=== PATIENT | male | born 1960 | race Caucasian/White ===

== ENCOUNTER 2016-02-05 16:35 | Inpatient (IN) | payer BC ==
[~2016-02-05] VITALS: Ht 200.7 cm; Wt 133.1 kg
[~2016-02-05 16:35] MED LIST: ALTACE 10MG TAB10 MG PO; ALTACE 5MG5 MG PO; APRESOLINE 25MG25 MG PO; BLOOD PRESSURE PILL; CIPRO 500MG TA500 MG PO; GLUCOPHAGE XR500 M1 PO; GLUCOPHAGE1000 MG PO; LANTUS SOLOS100 U/ML SC; LOTREL 10 MG-401 CAP PO; MINOCYCLIN100 MG/CAP PO; NORVASC 10MG10 MG PO; ONGLYZA5 MG PO; PRANDIN 0.5MG0.5 MG PO; VANCOMYCIN IV; ZOCOR 20MG20 MG PO; blood pressure med; diabetic med
[2016-02-05 17:35] LABS: BASO # 0.1 (0.0-0.2); BASO % 0.5 % (0.0-2.0); EOS # 0.1 (0.0-0.7); EOS % 0.7 % (0-4.0); GRAN # 12.9 (1.4-6.5); GRAN % 84.9 % (42.2-75.2); LYMPH % 6.5 % (20.0-51.0); MEAN CELL VOLUME 78 fl (80.0-100.0); MEAN CORPUSCULAR HGB CONC 34 g/dl (33.0-37.0); MEAN PLATELET VOLUME 10.8 fl (7.4-10.4); MONO # 1.1 (0.1-0.6); PLATELET COUNT 278 K/mm3 (130-400); RED BLOOD COUNT 3.99 M/mm3 (4.20-5.60); REDCELL DISTRIBUTION WIDTH-CV 12.1 % (11.5-14.5); WHITE BLOOD COUNT 15.2 K/mm3 (4.8-10.8)
[2016-02-05 17:38] LABS: HEMATOCRIT 31.1 % (42.0-52.0); HEMOGLOBIN 10.6 g/dl (13.5-18.0); MEAN CORPUSCULAR HEMOGLOBIN 27 pg (27.0-31.0)
[2016-02-05 17:46] LABS: ADJUSTED CALCIUM 9.3 mg/dL (8.4-10.2); ALANINE AMINOTRANSFERASE 40 U/L (21-72); ALBUMIN 3.4 gm/dL (3.5-5.0); ALKALINE PHOSPHATASE 131 U/L (50-136); ANION GAP 12 mmol/L (7-16); BILIRUBIN,TOTAL 1.3 mg/dL (0.0-1.0); BLOOD UREA NITROGEN 24 mg/dL (9-20); CALCIUM 8.8 mg/dL (8.4-10.2); CARBON DIOXIDE 24 mmol/L (22-30); CHLORIDE 93 mmol/L (98-107); CREATININE, serum 1.62 mg/dL (0.66-1.25); POTASSIUM 4.4 mmol/L (3.4-5.0); SODIUM 129 mmol/L (137-145); TOTAL PROTEIN 7.5 gm/dL (6.4-8.2)
[2016-02-05 17:52] LABS: GLUCOSE 499 mg/dL (74-106)
[2016-02-05 18:26] LABS: C-REACTIVE PROTEIN 21.6 mg/dL (0.0-0.9)
[2016-02-05 20:59] VITALS: BP 152/80; PULSE 97; TEMP 98.4
[2016-02-05 23:47] VITALS: BP 170/84; PULSE 95; TEMP 98.2
[2016-02-06 03:40] VITALS: BP 152/67; PULSE 75; TEMP 98.7
[2016-02-06 06:46] LABS: BASO # 0.1 (0.0-0.2); BASO % 0.4 % (0.0-2.0); EOS # 0.3 (0.0-0.7); EOS % 2.4 % (0-4.0); GRAN # 9.3 (1.4-6.5); GRAN % 81.1 % (42.2-75.2); LYMPH # 0.9 (1.2-3.4); LYMPH % 7.7 % (20.0-51.0); MEAN CELL VOLUME 79 fl (80.0-100.0); MEAN CORPUSCULAR HGB CONC 34 g/dl (33.0-37.0); MEAN PLATELET VOLUME 10.5 fl (7.4-10.4); MONO # 0.9 (0.1-0.6); PLATELET COUNT 258 K/mm3 (130-400); RED BLOOD COUNT 3.34 M/mm3 (4.20-5.60); REDCELL DISTRIBUTION WIDTH-CV 12.2 % (11.5-14.5); WHITE BLOOD COUNT 11.5 K/mm3 (4.8-10.8)
[2016-02-06 06:51] LABS: CALCIUM 8.3 mg/dL (8.4-10.2); CREATININE, serum 1.45 mg/dL (0.66-1.25); POTASSIUM 3.5 mmol/L (3.4-5.0)
[2016-02-06 06:57] LABS: HEMATOCRIT 26.5 % (42.0-52.0); HEMOGLOBIN 8.9 g/dl (13.5-18.0); MEAN CORPUSCULAR HEMOGLOBIN 27 pg (27.0-31.0)
[2016-02-06 07:49] VITALS: BP 148/79; PULSE 90; TEMP 99
[2016-02-06 13:21] VITALS: BP 155/72; PULSE 86; TEMP 97.9
[2016-02-06 17:42] VITALS: BP 163/82; PULSE 103; TEMP 99.8
[2016-02-06 19:23] VITALS: BP 169/87; PULSE 115; TEMP 99
[2016-02-06 23:40] VITALS: BP 176/77; PULSE 100; TEMP 99.2
[2016-02-07 03:46] VITALS: BP 156/75; PULSE 86; TEMP 97.1
[2016-02-07 06:57] LABS: BASO # 0.1 (0.0-0.2); BASO % 0.6 % (0.0-2.0); EOS # 0.3 (0.0-0.7); GRAN # 7.2 (1.4-6.5); LYMPH # 1.2 (1.2-3.4); LYMPH % 12.2 % (20.0-51.0); MEAN CELL VOLUME 80 fl (80.0-100.0); MEAN CORPUSCULAR HGB CONC 33 g/dl (33.0-37.0); MEAN PLATELET VOLUME 10.6 fl (7.4-10.4); MONO % 9.7 % (1.7-9.3); PLATELET COUNT 261 K/mm3 (130-400); RED BLOOD COUNT 3.38 M/mm3 (4.20-5.60); REDCELL DISTRIBUTION WIDTH-CV 12.5 % (11.5-14.5); WHITE BLOOD COUNT 9.8 K/mm3 (4.8-10.8)
[2016-02-07 07:01] LABS: HEMATOCRIT 27.1 % (42.0-52.0); HEMOGLOBIN 8.9 g/dl (13.5-18.0); MEAN CORPUSCULAR HEMOGLOBIN 26 pg (27.0-31.0)
[2016-02-07 07:19] LABS: CALCIUM 8.2 mg/dL (8.4-10.2); CREATININE, serum 1.37 mg/dL (0.66-1.25); MAGNESIUM 1.9 mg/dL (1.6-2.3); POTASSIUM 3.7 mmol/L (3.4-5.0)
[2016-02-07 07:50] LABS: C-REACTIVE PROTEIN 18.2 mg/dL (0.0-0.9)
[2016-02-07 08:28] VITALS: BP 165/79; PULSE 88; TEMP 98.7
[2016-02-07 11:33] VITALS: BP 156/78; PULSE 87; TEMP 98.3
[2016-02-07 16:32] VITALS: BP 171/79; PULSE 90; TEMP 100.5
[2016-02-07 19:24] VITALS: BP 167/79; PULSE 99; TEMP 98.7
[2016-02-08] VITALS (11 sets, daily range): BP systolic 114–173; BP diastolic 66–90; PULSE 71–160; TEMP 97.1–100.3
[2016-02-08 08:58] LABS: BASO # 0.1 (0.0-0.2); BASO % 0.8 % (0.0-2.0); EOS # 0.3 (0.0-0.7); EOS % 3.7 % (0-4.0); GRAN # 6.3 (1.4-6.5); GRAN % 69.8 % (42.2-75.2); LYMPH # 1.4 (1.2-3.4); LYMPH % 15.4 % (20.0-51.0); MEAN CELL VOLUME 80 fl (80.0-100.0); MEAN CORPUSCULAR HGB CONC 34 g/dl (33.0-37.0); MEAN PLATELET VOLUME 10.1 fl (7.4-10.4); MONO # 0.9 (0.1-0.6); MONO % 9.7 % (1.7-9.3); PLATELET COUNT 296 K/mm3 (130-400); RED BLOOD COUNT 3.38 M/mm3 (4.20-5.60); REDCELL DISTRIBUTION WIDTH-CV 12.6 % (11.5-14.5)
[2016-02-08 09:00] LABS: HEMOGLOBIN 9.1 g/dl (13.5-18.0); MEAN CORPUSCULAR HEMOGLOBIN 27 pg (27.0-31.0)
[2016-02-08 09:12] LABS: CALCIUM 8.4 mg/dL (8.4-10.2); CREATININE, serum 1.29 mg/dL (0.66-1.25); POTASSIUM 3.5 mmol/L (3.4-5.0)
[2016-02-08 09:57] LABS: C-REACTIVE PROTEIN 13.5 mg/dL (0.0-0.9)
[2016-02-09] VITALS (8 sets, daily range): BP systolic 158–196; BP diastolic 76–91; PULSE 80–88; TEMP 97.2–98.8
[2016-02-09 13:34] LABS: BASO # 0.1 (0.0-0.2); BASO % 0.6 % (0.0-2.0); EOS # 0.3 (0.0-0.7); GRAN # 5.8 (1.4-6.5); GRAN % 72.7 % (42.2-75.2); LYMPH # 1.1 (1.2-3.4); LYMPH % 13.6 % (20.0-51.0); MEAN CELL VOLUME 79 fl (80.0-100.0); MEAN CORPUSCULAR HGB CONC 34 g/dl (33.0-37.0); MEAN PLATELET VOLUME 10.1 fl (7.4-10.4); MONO # 0.6 (0.1-0.6); MONO % 8.1 % (1.7-9.3); PLATELET COUNT 295 K/mm3 (130-400); RED BLOOD COUNT 3.47 M/mm3 (4.20-5.60); REDCELL DISTRIBUTION WIDTH-CV 12.5 % (11.5-14.5); WHITE BLOOD COUNT 7.9 K/mm3 (4.8-10.8)
[2016-02-09 13:35] LABS: HEMATOCRIT 27.5 % (42.0-52.0); HEMOGLOBIN 9.2 g/dl (13.5-18.0); MEAN CORPUSCULAR HEMOGLOBIN 27 pg (27.0-31.0)
[2016-02-09 13:46] LABS: C-REACTIVE PROTEIN 7.6 mg/dL (0.0-0.9); CALCIUM 8.4 mg/dL (8.4-10.2); CREATININE, serum 1.2 mg/dL (0.66-1.25); POTASSIUM 3.9 mmol/L (3.4-5.0)
[2016-02-10 03:10] VITALS: BP 177/87; PULSE 80; TEMP 97
[2016-02-10 07:02] LABS: C-REACTIVE PROTEIN 7.4 mg/dL (0.0-0.9); CREATININE, serum 1.27 mg/dL (0.66-1.25); POTASSIUM 3.8 mmol/L (3.4-5.0)
[2016-02-10 08:23] VITALS: BP 167/81; PULSE 83; TEMP 98
[2016-02-10] MEDS ORDERED: LEVAQUIN 5500 MG/TA1 PO (09:18)
[2016-02-10] MEDS ORDERED: NOVOLOG FLEX100 U/ML SQ (09:18)
[2016-02-10] MEDS ORDERED: LOPRESSOR 225 MG/TAB PO (09:18)
[2016-02-10] MEDS ORDERED: LOPRESSOR 550 MG/TAB PO (11:57)
[2016-02-10 12:10] VITALS: BP 167/78; PULSE 79; TEMP 97.6
[2016-04-22] MEDS ORDERED: MAXIPIME2 GM IV (07:25)
[2016-10-22] MEDS ORDERED: FERROUS SU325 MG/TAB PO (11:41)
[2016-10-22] MEDS ORDERED: XARELTO10 MG PO (11:41)
[2016-10-22] MEDS ORDERED: TENORMIN 5050 MG/TAB PO (11:42)
[2016-10-22] MEDS ORDERED: COLACE 100100 MG/CAP PO (11:43)
[2016-10-22] MEDS ORDERED: TYLENOL 325MG325 MG PO (11:43)
[2016-10-22] MEDS ORDERED: COZAAR 50MG50 MG/TAB PO (11:44)
== END 2016-02-10 14:18 | disposition home or self-care (01) | DRG 638 ==
LOC: COL.ER 16:35 → MEDICAL 18:10
PROVIDERS: Emergency Medicine; Family Medicine; Nurse Practitioner Family
DX: E11.69 Type 2 diabetes mellitus with other specified complication (principal); M86.9 Osteomyelitis, unspecified; E87.1 Hypo-osmolality and hyponatremia; R78.81 Bacteremia; E11.621 Type 2 diabetes mellitus with foot ulcer; E11.22 Type 2 diabetes mellitus with diabetic chronic kidney disease; E11.65 Type 2 diabetes mellitus with hyperglycemia; E11.42 Type 2 diabetes mellitus with diabetic polyneuropathy; I12.9 Hypertensive chronic kidney disease with stage 1 through stage 4 chronic kidney disease, or unspecified chronic kidney disease; N18.9 Chronic kidney disease, unspecified; N17.9 Acute kidney failure, unspecified; D64.9 Anemia, unspecified; R00.0 Tachycardia, unspecified; B95.5 Unspecified streptococcus as the cause of diseases classified elsewhere; Z86.73 Personal history of transient ischemic attack (TIA), and cerebral infarction without residual deficits; Z79.4 Long term (current) use of insulin
CPT/HCPCS: 99222-AI; 99232-AI; 99233-AI; 99239; A6207; A9585; J0696; J1644; J1815; J1956; J2543; J3370; J7030; J7050

== ENCOUNTER 2016-04-09 17:34 | Inpatient (IN) | payer BC ==
[~2016-04-09] VITALS: Ht 200.7 cm; Wt 121.5 kg
[~2016-04-09 17:34] MED LIST changes: +LEVAQUIN 5500 MG/TA1 PO; +LOPRESSOR 225 MG/TAB PO; +LOPRESSOR 550 MG/TAB PO; +NOVOLOG FLEX100 U/ML SQ
[2016-04-09 18:49] LABS: BASO % 0.3 % (0.0-2.0); EOS % 0.1 % (0-4.0); GRAN % 87.8 % (42.2-75.2); LYMPH # 0.7 (1.2-3.4); LYMPH % 5.7 % (20.0-51.0); MEAN CELL VOLUME 77 fl (80.0-100.0); MEAN CORPUSCULAR HGB CONC 34 g/dl (33.0-37.0); MEAN PLATELET VOLUME 10.5 fl (7.4-10.4); MONO # 0.7 (0.1-0.6); MONO % 5.8 % (1.7-9.3); PLATELET COUNT 314 K/mm3 (130-400); RED BLOOD COUNT 4.48 M/mm3 (4.20-5.60); REDCELL DISTRIBUTION WIDTH-CV 13.2 % (11.5-14.5); WHITE BLOOD COUNT 12.6 K/mm3 (4.8-10.8)
[2016-04-09 18:56] LABS: HEMATOCRIT 34.4 % (42.0-52.0); HEMOGLOBIN 11.6 g/dl (13.5-18.0); MEAN CORPUSCULAR HEMOGLOBIN 26 pg (27.0-31.0)
[2016-04-09 19:12] LABS: ADJUSTED CALCIUM 9.4 mg/dL (8.4-10.2); ALBUMIN 4.1 gm/dL (3.5-5.0); BILIRUBIN,TOTAL 2.4 mg/dL (0.0-1.0); CALCIUM 9.5 mg/dL (8.4-10.2); CREATININE, serum 1.68 mg/dL (0.66-1.25); POTASSIUM 4.1 mmol/L (3.4-5.0); TOTAL PROTEIN 8.5 gm/dL (6.4-8.2)
[2016-04-09 19:13] LABS: ERYTHROCYTE SEDIMENTATION RATE > 140 mm/hr (0-30)
[2016-04-09 19:38] LABS: C-REACTIVE PROTEIN 23.5 mg/dL (0.0-0.9)
[2016-04-09 21:06] VITALS: BP 170/90; PULSE 100; TEMP 98.8
[2016-04-09] MEDS ORDERED: ALTACE 10MG TAB10 MG PO (21:27)
[2016-04-10 05:12] VITALS: BP 144/66; PULSE 90; TEMP 98.7
[2016-04-10 09:09] VITALS: BP 168/77; PULSE 88; TEMP 97.7
[2016-04-10 12:35] LABS: BASO % 0.4 % (0.0-2.0); EOS # 0.1 (0.0-0.7); GRAN % 77.1 % (42.2-75.2); LYMPH # 1.1 (1.2-3.4); LYMPH % 12.5 % (20.0-51.0); MEAN CELL VOLUME 77 fl (80.0-100.0); MEAN CORPUSCULAR HGB CONC 34 g/dl (33.0-37.0); MONO # 0.8 (0.1-0.6); MONO % 8.8 % (1.7-9.3); PLATELET COUNT 249 K/mm3 (130-400); RED BLOOD COUNT 3.42 M/mm3 (4.20-5.60); REDCELL DISTRIBUTION WIDTH-CV 13.1 % (11.5-14.5); WHITE BLOOD COUNT 9.1 K/mm3 (4.8-10.8)
[2016-04-10 12:40] LABS: CALCIUM 8.3 mg/dL (8.4-10.2); CREATININE, serum 1.17 mg/dL (0.66-1.25); POTASSIUM 3.9 mmol/L (3.4-5.0)
[2016-04-10 12:41] LABS: HEMATOCRIT 26.3 % (42.0-52.0); HEMOGLOBIN 8.8 g/dl (13.5-18.0); MEAN CORPUSCULAR HEMOGLOBIN 26 pg (27.0-31.0)
[2016-04-10 13:49] VITALS: BP 147/81; PULSE 81; TEMP 97.4
[2016-04-10 17:02] VITALS: BP 153/77; PULSE 83; TEMP 98.1
[2016-04-10 21:56] VITALS: BP 169/80; PULSE 91; TEMP 98.1
[2016-04-11] VITALS (7 sets, daily range): BP systolic 148–159; BP diastolic 57–82; PULSE 76–92; TEMP 97.5–98.5
[2016-04-11 09:55] LABS: BASO # 0.1 (0.0-0.2); BASO % 0.6 % (0.0-2.0); EOS # 0.2 (0.0-0.7); EOS % 2.4 % (0-4.0); GRAN # 5.4 (1.4-6.5); GRAN % 68.4 % (42.2-75.2); LYMPH # 1.6 (1.2-3.4); LYMPH % 20.6 % (20.0-51.0); MEAN CELL VOLUME 79 fl (80.0-100.0); MEAN CORPUSCULAR HGB CONC 33 g/dl (33.0-37.0); MEAN PLATELET VOLUME 10.4 fl (7.4-10.4); MONO # 0.6 (0.1-0.6); MONO % 7.6 % (1.7-9.3); PLATELET COUNT 338 K/mm3 (130-400); RED BLOOD COUNT 3.62 M/mm3 (4.20-5.60); REDCELL DISTRIBUTION WIDTH-CV 13.3 % (11.5-14.5); WHITE BLOOD COUNT 7.9 K/mm3 (4.8-10.8)
[2016-04-11 10:08] LABS: ADJUSTED CALCIUM 9.6 mg/dL (8.4-10.2); ALBUMIN 3.2 gm/dL (3.5-5.0); CREATININE, serum 1.27 mg/dL (0.66-1.25); POTASSIUM 3.4 mmol/L (3.4-5.0); TOTAL PROTEIN 7.1 gm/dL (6.4-8.2)
[2016-04-11 10:14] LABS: HEMATOCRIT 28.5 % (42.0-52.0); HEMOGLOBIN 9.3 g/dl (13.5-18.0); MEAN CORPUSCULAR HEMOGLOBIN 26 pg (27.0-31.0)
[2016-04-12] VITALS (12 sets, daily range): BP systolic 124–153; BP diastolic 64–98; PULSE 62–84; TEMP 98.1–99.3
[2016-04-12 08:56] LABS: MEAN CELL VOLUME 78 fl (80.0-100.0); MEAN CORPUSCULAR HGB CONC 33 g/dl (33.0-37.0); MEAN PLATELET VOLUME 10.4 fl (7.4-10.4); PLATELET COUNT 300 K/mm3 (130-400); RED BLOOD COUNT 3.52 M/mm3 (4.20-5.60); REDCELL DISTRIBUTION WIDTH-CV 13.3 % (11.5-14.5); WHITE BLOOD COUNT 7.1 K/mm3 (4.8-10.8)
[2016-04-12 09:17] LABS: HEMATOCRIT 27.6 % (42.0-52.0); MEAN CORPUSCULAR HEMOGLOBIN 26 pg (27.0-31.0)
[2016-04-12 09:37] LABS: CALCIUM 8.8 mg/dL (8.4-10.2); CREATININE, serum 1.17 mg/dL (0.66-1.25); POTASSIUM 3.7 mmol/L (3.4-5.0)
[2016-04-13 02:19] VITALS: BP 152/73; PULSE 84; TEMP 99.5
[2016-04-13 06:18] VITALS: BP 152/71; PULSE 83; TEMP 98.5
[2016-04-13 07:23] LABS: HEMATOCRIT 24.2 % (42.0-52.0)
[2016-04-13 07:41] LABS: CALCIUM 8.6 mg/dL (8.4-10.2); CREATININE, serum 1.23 mg/dL (0.66-1.25); POTASSIUM 3.8 mmol/L (3.4-5.0)
[2016-04-13] MEDS ORDERED: XARELTO10 MG PO (08:10)
[2016-04-13] MEDS ORDERED: CARDIZEM CD 12120 MG PO (08:11)
[2016-04-13] MEDS ORDERED: TOPROL XL 50MG50 MG PO (08:11)
[2016-04-13] MEDS ORDERED: NORCO 325 MG-7.1 TAB PO (08:12)
[2016-04-13] MEDS ORDERED: LANTUS SOLOS100 U/ML SQ (08:15)
[2016-04-13] MEDS ORDERED: VANCOCIN HCL1 GM IV (08:17)
[2016-04-13] MEDS ORDERED: MAXIPIME2 GM IJ (08:17)
[2016-04-13 13:26] VITALS: BP 148/74; PULSE 83; TEMP 99.3
[2016-04-22] MEDS ORDERED: MAXIPIME2 GM IV (07:25)
[2016-10-22] MEDS ORDERED: XARELTO10 MG PO (11:41)
[2016-10-22] MEDS ORDERED: FERROUS SU325 MG/TAB PO (11:41)
[2016-10-22] MEDS ORDERED: TENORMIN 5050 MG/TAB PO (11:42)
[2016-10-22] MEDS ORDERED: COLACE 100100 MG/CAP PO (11:43)
[2016-10-22] MEDS ORDERED: TYLENOL 325MG325 MG PO (11:43)
[2016-10-22] MEDS ORDERED: COZAAR 50MG50 MG/TAB PO (11:44)
== END 2016-04-13 20:05 | disposition home or self-care (01) | DRG 854 ==
LOC: COL.ER 17:34 → SURG 19:31
PROVIDERS: Emergency Medicine; Internal Medicine; Orthopaedic Surgery
PROC: 0QBN0ZZ Excision of Right Metatarsal, Open Approach (ICD-10-PCS; 2016-04-12)
PROC: 0Y6M0Z9 Detachment at Right Foot, Partial 1st Ray, Open Approach (ICD-10-PCS; principal; 2016-04-12 11:00)
PROC: 02HV33Z Insertion of Infusion Device into Superior Vena Cava, Percutaneous Approach (ICD-10-PCS; 2016-04-13)
DX: A41.9 Sepsis, unspecified organism (principal); M86.171 Other acute osteomyelitis, right ankle and foot; D62 Acute posthemorrhagic anemia; M86.671 Other chronic osteomyelitis, right ankle and foot; I47.1 Supraventricular tachycardia; Z66 Do not resuscitate; E11.69 Type 2 diabetes mellitus with other specified complication; I10 Essential (primary) hypertension; E11.42 Type 2 diabetes mellitus with diabetic polyneuropathy; Z79.4 Long term (current) use of insulin; Z86.73 Personal history of transient ischemic attack (TIA), and cerebral infarction without residual deficits
CPT/HCPCS: 99223-AI; 99232-AI; 99233-AI; 99239; C1713; C1751; J0690; J0692; J1644; J1815; J2250; J2543; J2704; J2765; J3010; J3260; J3370; J7030; J7050

== ENCOUNTER 2016-04-27 07:00 | Outpatient (RCR) | payer BC ==
[2016-04-14 07:17] VITALS: BP 142/63; PULSE 92; TEMP 97.9
[2016-04-14 18:49] VITALS: BP 155/90; PULSE 90; TEMP 97.7
[2016-04-15] VITALS (12 sets, daily range): BP systolic 148–180; BP diastolic 69–98; PULSE 81–94; TEMP 97–98.8
[2016-04-15 07:44] LABS: MEAN CELL VOLUME 78 fl (80.0-100.0); MEAN CORPUSCULAR HGB CONC 33 g/dl (33.0-37.0); PLATELET COUNT 359 K/mm3 (130-400); RED BLOOD COUNT 2.02 M/mm3 (4.20-5.60); REDCELL DISTRIBUTION WIDTH-CV 13.2 % (11.5-14.5); WHITE BLOOD COUNT 7.9 K/mm3 (4.8-10.8)
[2016-04-15 07:46] LABS: HEMATOCRIT 15.8 % (42.0-52.0); HEMOGLOBIN 5.2 g/dl (13.5-18.0); MEAN CORPUSCULAR HEMOGLOBIN 26 pg (27.0-31.0)
[2016-04-15 08:00] LABS: ADJUSTED CALCIUM 9.6 mg/dL (8.4-10.2); ALBUMIN 2.7 gm/dL (3.5-5.0); BILIRUBIN,TOTAL 0.8 mg/dL (0.0-1.0); CALCIUM 8.6 mg/dL (8.4-10.2); CREATININE, serum 1.24 mg/dL (0.66-1.25); POTASSIUM 3.3 mmol/L (3.4-5.0); TOTAL PROTEIN 5.9 gm/dL (6.4-8.2)
[2016-04-15 08:03] LABS: VANCOMYCIN TROUGH 16.07 ug/mL (7.00-20.00)
[2016-04-15 08:08] LABS: ERYTHROCYTE SEDIMENTATION RATE > 140 mm/hr (0-30)
[2016-04-15 08:13] LABS: C-REACTIVE PROTEIN 14.7 mg/dL (0.0-0.9)
[2016-04-16 07:28] VITALS: BP 175/87; PULSE 82; TEMP 97.8
[2016-04-16 07:41] LABS: HEMATOCRIT 30.3 % (42.0-52.0)
[2016-04-16 18:00] VITALS: BP 188/93; PULSE 78; TEMP 97.6
[2016-04-17 07:18] VITALS: BP 170/80; PULSE 82; TEMP 97.7
[2016-04-17 18:37] VITALS: BP 162/74; PULSE 90; TEMP 98.3
[2016-04-18 08:35] VITALS: BP 155/79; PULSE 82; TEMP 98.4
[2016-04-19 07:28] VITALS: BP 173/86; PULSE 81; TEMP 97.3
[2016-04-19 08:01] VITALS: BP 173/86; PULSE 81; TEMP 97.3
[2016-04-20 07:08] VITALS: BP 198/85; PULSE 83; TEMP 97.5
[2016-04-20 08:10] LABS: CREATININE, serum 2.69 mg/dL (0.66-1.25)
[2016-04-20 17:15] VITALS: BP 200/88; PULSE 85; TEMP 98
[2016-04-20 19:33] VITALS: BP 181/88
[2016-04-21 07:35] VITALS: BP 197/93; PULSE 81; TEMP 98.1
[2016-04-21 07:48] LABS: CALCIUM 8.9 mg/dL (8.4-10.2); CREATININE, serum 2.56 mg/dL (0.66-1.25); POTASSIUM 3.6 mmol/L (3.4-5.0)
[2016-04-22 07:26] VITALS: BP 192/90; PULSE 80; TEMP 97.8
[2016-04-22 07:38] LABS: CREATININE, serum 2.85 mg/dL (0.66-1.25)
[2016-04-22 10:05] VITALS: BP 211/111; PULSE 72
[2016-04-22 11:10] VITALS: BP 180/97; PULSE 72
[2016-04-23 07:15] VITALS: BP 180/92; PULSE 81; TEMP 97.8
[2016-04-23 08:35] LABS: CREATININE, serum 2.59 mg/dL (0.66-1.25)
[2016-04-24 07:38] VITALS: BP 199/90; PULSE 77; TEMP 98
[2016-04-24 07:55] LABS: CREATININE, serum 2.42 mg/dL (0.66-1.25)
[2016-04-25 08:14] LABS: BASO # 0.1 (0.0-0.2); BASO % 0.9 % (0.0-2.0); EOS # 0.4 (0.0-0.7); EOS % 5.6 % (0-4.0); GRAN # 4.4 (1.4-6.5); GRAN % 64.4 % (42.2-75.2); HEMATOCRIT 28.6 % (42.0-52.0); HEMOGLOBIN 9.3 g/dl (13.5-18.0); LYMPH # 1.5 (1.2-3.4); LYMPH % 21.4 % (20.0-51.0); MEAN CELL VOLUME 79 fl (80.0-100.0); MEAN CORPUSCULAR HEMOGLOBIN 26 pg (27.0-31.0); MEAN CORPUSCULAR HGB CONC 33 g/dl (33.0-37.0); MEAN PLATELET VOLUME 9.5 fl (7.4-10.4); MONO # 0.5 (0.1-0.6); MONO % 7.4 % (1.7-9.3); PLATELET COUNT 315 K/mm3 (130-400); RED BLOOD COUNT 3.61 M/mm3 (4.20-5.60); REDCELL DISTRIBUTION WIDTH-CV 14.2 % (11.5-14.5); WHITE BLOOD COUNT 6.8 K/mm3 (4.8-10.8)
[2016-04-25 08:28] LABS: ADJUSTED CALCIUM 9.5 mg/dL (8.4-10.2); ALBUMIN 3.3 gm/dL (3.5-5.0); BILIRUBIN,TOTAL 0.5 mg/dL (0.0-1.0); C-REACTIVE PROTEIN 1.2 mg/dL (0.0-0.9); CALCIUM 8.9 mg/dL (8.4-10.2); CREATININE, serum 2.64 mg/dL (0.66-1.25); POTASSIUM 3.8 mmol/L (3.4-5.0); TOTAL PROTEIN 7.2 gm/dL (6.4-8.2)
[2016-04-25 08:32] LABS: ERYTHROCYTE SEDIMENTATION RATE 98 mm/hr (0-30)
[2016-04-25 09:18] VITALS: BP 189/92; PULSE 78; TEMP 97.7
[2016-04-26 09:26] VITALS: BP 191/93; PULSE 88; TEMP 98.4
[~2016-04-27] VITALS: Ht 200.7 cm; Wt 127.2 kg
[~2016-04-27 07:00] MED LIST changes: +CARDIZEM CD 12120 MG PO; +LANTUS SOLOS100 U/ML SQ; +MAXIPIME2 GM IJ; +MAXIPIME2 GM IV; +NORCO 325 MG-7.1 TAB PO; +TOPROL XL 50MG50 MG PO; +VANCOCIN HCL1 GM IV; +XARELTO10 MG PO
[2016-04-27 07:01] VITALS: BP 190/95; PULSE 84; TEMP 98
[2016-04-27] MEDS ORDERED: VANCOCIN HCL1 GM IV (20:48)
[2016-04-29] MEDS ORDERED: LANTUS100 U/ML SQ ×2 (10:49→14:44)
[2016-04-29] MEDS ORDERED: TOPROL XL 50MG50 MG PO (10:50)
[2016-04-29] MEDS ORDERED: CARDIZEM CD 12120 MG PO (10:50)
[2016-04-29] MEDS ORDERED: DOXYCYCLINE 10100 MG PO (14:34)
[2016-04-29] MEDS ORDERED: PROCARDIA XL 6060 MG PO (14:35)
[2016-10-22] MEDS ORDERED: FERROUS SU325 MG/TAB PO (11:41)
[2016-10-22] MEDS ORDERED: XARELTO10 MG PO (11:41)
[2016-10-22] MEDS ORDERED: TENORMIN 5050 MG/TAB PO (11:42)
[2016-10-22] MEDS ORDERED: COLACE 100100 MG/CAP PO (11:43)
[2016-10-22] MEDS ORDERED: TYLENOL 325MG325 MG PO (11:43)
[2016-10-22] MEDS ORDERED: COZAAR 50MG50 MG/TAB PO (11:44)
== END 2016-04-28 13:00 | disposition home or self-care (01) ==
LOC: EUO 07:00
PROVIDERS: Family Medicine; Internal Medicine Infectious Disease; Nurse Practitioner; Specialist
DX: L02.611 Cutaneous abscess of right foot (principal); Z79.2 Long term (current) use of antibiotics; Z45.2 Encounter for adjustment and management of vascular access device
CPT/HCPCS: J0692; J1644; J3370; J7030; J7050; P9016

== ENCOUNTER 2016-04-27 20:40 | Inpatient (IN) | payer BC ==
[~2016-04-27] VITALS: Ht 200.7 cm; Wt 128.5 kg
[2016-04-27] MEDS ORDERED: VANCOCIN HCL1 GM IV (20:48)
[2016-04-27 21:32] LABS: BASO # 0.1 (0.0-0.2); BASO % 0.6 % (0.0-2.0); EOS # 0.1 (0.0-0.7); EOS % 0.7 % (0-4.0); GRAN # 11.5 (1.4-6.5); GRAN % 88.1 % (42.2-75.2); LYMPH # 0.7 (1.2-3.4); LYMPH % 5.1 % (20.0-51.0); MEAN CELL VOLUME 78 fl (80.0-100.0); MEAN CORPUSCULAR HGB CONC 33 g/dl (33.0-37.0); MEAN PLATELET VOLUME 9.5 fl (7.4-10.4); MONO # 0.7 (0.1-0.6); MONO % 5.1 % (1.7-9.3); PLATELET COUNT 278 K/mm3 (130-400); RED BLOOD COUNT 3.62 M/mm3 (4.20-5.60); REDCELL DISTRIBUTION WIDTH-CV 14.4 % (11.5-14.5)
[2016-04-27 21:35] LABS: HEMATOCRIT 28.3 % (42.0-52.0); HEMOGLOBIN 9.4 g/dl (13.5-18.0); MEAN CORPUSCULAR HEMOGLOBIN 26 pg (27.0-31.0)
[2016-04-27 21:47] LABS: ADJUSTED CALCIUM 9.2 mg/dL (8.4-10.2); ALBUMIN 3.3 gm/dL (3.5-5.0); BILIRUBIN,TOTAL 0.8 mg/dL (0.0-1.0); C-REACTIVE PROTEIN 6.4 mg/dL (0.0-0.9); CALCIUM 8.6 mg/dL (8.4-10.2); CREATININE, serum 2.58 mg/dL (0.66-1.25); POTASSIUM 3.7 mmol/L (3.4-5.0); TOTAL PROTEIN 7.3 gm/dL (6.4-8.2)
[2016-04-27 21:53] LABS: ERYTHROCYTE SEDIMENTATION RATE > 140 mm/hr (0-30)
[2016-04-27 22:06] LABS: PH 5 (5-8); SQUAMOUS EPITHELIAL 0-2 /hpf; URINE APPEARANCE Hazy; URINE BACTERIA None Seen /hpf; URINE BILIRUBIN Negative (NEGATIVE); URINE BLOOD 1+ (NEGATIVE); URINE COLOR Yellow; URINE GLUCOSE 1+ (NEGATIVE); URINE KETONE Negative (NEGATIVE); URINE UROBILINOGEN Negative (NEGATIVE); URINE WBC 0-2 /hpf
[2016-04-28] VITALS (831 sets, daily range): BP systolic 123–192; BP diastolic 71–121; PULSE 71–87; TEMP 97.7–98.6; O2SAT 82–100
[2016-04-28 07:09] LABS: BASO # 0.1 (0.0-0.2); BASO % 0.5 % (0.0-2.0); EOS # 0.1 (0.0-0.7); EOS % 0.9 % (0-4.0); GRAN # 7.1 (1.4-6.5); GRAN % 76.7 % (42.2-75.2); LYMPH # 1.2 (1.2-3.4); LYMPH % 12.6 % (20.0-51.0); MEAN CELL VOLUME 80 fl (80.0-100.0); MEAN CORPUSCULAR HGB CONC 32 g/dl (33.0-37.0); MEAN PLATELET VOLUME 9.7 fl (7.4-10.4); MONO # 0.8 (0.1-0.6); MONO % 8.9 % (1.7-9.3); PLATELET COUNT 235 K/mm3 (130-400); RED BLOOD COUNT 3.12 M/mm3 (4.20-5.60); REDCELL DISTRIBUTION WIDTH-CV 14.6 % (11.5-14.5); WHITE BLOOD COUNT 9.2 K/mm3 (4.8-10.8)
[2016-04-28 07:13] LABS: HEMATOCRIT 24.8 % (42.0-52.0); HEMOGLOBIN 7.9 g/dl (13.5-18.0); MEAN CORPUSCULAR HEMOGLOBIN 25 pg (27.0-31.0)
[2016-04-28 07:30] LABS: CALCIUM 8.7 mg/dL (8.4-10.2); CREATININE, serum 2.7 mg/dL (0.66-1.25); ERYTHROCYTE SEDIMENTATION RATE > 140 mm/hr (0-30); POTASSIUM 3.3 mmol/L (3.4-5.0)
[2016-04-29] VITALS (616 sets, daily range): BP systolic 114–157; BP diastolic 57–88; PULSE 16–80; TEMP 98–99.5; O2SAT 74–100
[2016-04-29 06:28] LABS: CALCIUM 8.6 mg/dL (8.4-10.2); CREATININE, serum 2.55 mg/dL (0.66-1.25); POTASSIUM 3.4 mmol/L (3.4-5.0)
[2016-04-29] MEDS ORDERED: LANTUS100 U/ML SQ ×2 (10:49→14:44)
[2016-04-29] MEDS ORDERED: CARDIZEM CD 12120 MG PO (10:50)
[2016-04-29] MEDS ORDERED: TOPROL XL 50MG50 MG PO (10:50)
[2016-04-29] MEDS ORDERED: DOXYCYCLINE 10100 MG PO (14:34)
[2016-04-29] MEDS ORDERED: PROCARDIA XL 6060 MG PO (14:35)
[2016-04-29 22:57] LABS: PROT-CREAT RATIO, URINE 1.8 (())
[2016-10-22] MEDS ORDERED: FERROUS SU325 MG/TAB PO (11:41)
[2016-10-22] MEDS ORDERED: XARELTO10 MG PO (11:41)
[2016-10-22] MEDS ORDERED: TENORMIN 5050 MG/TAB PO (11:42)
[2016-10-22] MEDS ORDERED: COLACE 100100 MG/CAP PO (11:43)
[2016-10-22] MEDS ORDERED: TYLENOL 325MG325 MG PO (11:43)
[2016-10-22] MEDS ORDERED: COZAAR 50MG50 MG/TAB PO (11:44)
== END 2016-04-29 15:25 | disposition home or self-care (01) | DRG 920 ==
LOC: COL.ER 20:40 → IMCU 23:35
PROVIDERS: Emergency Medicine; Internal Medicine; Nurse Practitioner Family; Orthopaedic Surgery
DX: T81.31XA Disruption of external operation (surgical) wound, not elsewhere classified, initial encounter (principal); N17.9 Acute kidney failure, unspecified; I12.9 Hypertensive chronic kidney disease with stage 1 through stage 4 chronic kidney disease, or unspecified chronic kidney disease; E11.22 Type 2 diabetes mellitus with diabetic chronic kidney disease; N18.9 Chronic kidney disease, unspecified; E11.42 Type 2 diabetes mellitus with diabetic polyneuropathy; Z79.4 Long term (current) use of insulin; Z89.411 Acquired absence of right great toe
CPT/HCPCS: 99223-AI; 99239; J0692; J1170; J1644; J1815; J1940; J2550; J3370; J7040; J7050

== ENCOUNTER → 2016-05-06 | Outpatient (CLI) | payer BC ==
[~2016-05-06] MED LIST changes: +COLACE 100100 MG/CAP PO; +COZAAR 50MG50 MG/TAB PO; +DOXYCYCLINE 10100 MG PO; +FERROUS SU325 MG/TAB PO; +LANTUS100 U/ML SQ; +PROCARDIA XL 6060 MG PO; +TENORMIN 5050 MG/TAB PO; +TYLENOL 325MG325 MG PO
[2016-05-06 10:27] LABS: MEAN CELL VOLUME 80 fl (80.0-100.0); MEAN CORPUSCULAR HGB CONC 32 g/dl (33.0-37.0); MEAN PLATELET VOLUME 9.6 fl (7.4-10.4); PLATELET COUNT 276 K/mm3 (130-400); RED BLOOD COUNT 3.96 M/mm3 (4.20-5.60); REDCELL DISTRIBUTION WIDTH-CV 14.6 % (11.5-14.5); WHITE BLOOD COUNT 6.8 K/mm3 (4.8-10.8)
[2016-05-06 11:14] LABS: HEMATOCRIT 31.7 % (42.0-52.0); HEMOGLOBIN 10.2 g/dl (13.5-18.0); MEAN CORPUSCULAR HEMOGLOBIN 26 pg (27.0-31.0)
[2016-05-06 11:51] LABS: ERYTHROCYTE SEDIMENTATION RATE 118 mm/hr (0-30)
== END ==
LOC: COL.LAB 09:48
PROVIDERS: Orthopaedic Surgery
DX: Z47.89 Encounter for other orthopedic aftercare (principal)

== ENCOUNTER 2016-05-11 05:34 | Day surgery (SDC) | payer BC ==
[~2016-05-11] VITALS: Ht 200.7 cm; Wt 121.5 kg
[~2016-05-11 05:34] MED LIST changes: -COLACE 100100 MG/CAP PO; -COZAAR 50MG50 MG/TAB PO; -FERROUS SU325 MG/TAB PO; -TENORMIN 5050 MG/TAB PO; -TYLENOL 325MG325 MG PO
[2016-05-11 06:14] VITALS: BP 152/101; PULSE 89; TEMP 97.8
[2016-05-11 06:17] LABS: CALCIUM 9.4 mg/dL (8.4-10.2); CREATININE, serum 2.4 mg/dL (0.66-1.25)
[2016-05-11 08:39] VITALS: BP 136/82; PULSE 72; TEMP 97.4
[2016-05-11 09:10] VITALS: BP 147/66; PULSE 70
[2016-05-11 09:25] VITALS: BP 156/70; PULSE 72
[2016-05-11 09:40] VITALS: BP 162/71; PULSE 71
[2016-10-22] MEDS ORDERED: XARELTO10 MG PO (11:41)
[2016-10-22] MEDS ORDERED: FERROUS SU325 MG/TAB PO (11:41)
[2016-10-22] MEDS ORDERED: TENORMIN 5050 MG/TAB PO (11:42)
[2016-10-22] MEDS ORDERED: TYLENOL 325MG325 MG PO (11:43)
[2016-10-22] MEDS ORDERED: COLACE 100100 MG/CAP PO (11:43)
[2016-10-22] MEDS ORDERED: COZAAR 50MG50 MG/TAB PO (11:44)
== END 2016-05-11 13:53 | disposition home or self-care (01) ==
LOC: SDCO 05:34
PROVIDERS: Nurse Anesthetist, Certified Registered
DX: M86.8X7 Other osteomyelitis, ankle and foot (principal); E11.621 Type 2 diabetes mellitus with foot ulcer; L97.519 Non-pressure chronic ulcer of other part of right foot with unspecified severity; Z79.4 Long term (current) use of insulin; Z80.9 Family history of malignant neoplasm, unspecified
CPT/HCPCS: C1713; J2704; J3010; J3370

== ENCOUNTER 2016-08-28 06:02 | Day surgery (SDC) | payer BC ==
[~2016-08-28] VITALS: Ht 200.7 cm; Wt 124.5 kg
[2016-08-28 06:20] VITALS: BP 149/76; PULSE 99; TEMP 97.1
[2016-08-28 07:30] LABS: BASO # 0.1 (0.0-0.2); BASO % 0.7 % (0.0-2.0); EOS # 0.1 (0.0-0.7); EOS % 1.4 % (0-4.0); GRAN % 73.9 % (42.2-75.2); LYMPH # 1.1 (1.2-3.4); MEAN CELL VOLUME 79 fl (80.0-100.0); MEAN CORPUSCULAR HGB CONC 33 g/dl (33.0-37.0); MONO # 0.9 (0.1-0.6); MONO % 10.5 % (1.7-9.3); PLATELET COUNT 243 K/mm3 (130-400); RED BLOOD COUNT 3.69 M/mm3 (4.20-5.60); REDCELL DISTRIBUTION WIDTH-CV 12.6 % (11.5-14.5); WHITE BLOOD COUNT 8.1 K/mm3 (4.8-10.8)
[2016-08-28 07:33] LABS: HEMATOCRIT 29.3 % (42.0-52.0); HEMOGLOBIN 9.7 g/dl (13.5-18.0); MEAN CORPUSCULAR HEMOGLOBIN 26 pg (27.0-31.0)
[2016-08-28 07:41] LABS: C-REACTIVE PROTEIN 8.9 mg/dL (0.0-0.9); CALCIUM 9.1 mg/dL (8.4-10.2); CREATININE, serum 2.17 mg/dL (0.66-1.25); POTASSIUM 4.1 mmol/L (3.4-5.0)
[2016-08-28 08:49] LABS: ERYTHROCYTE SEDIMENTATION RATE 90 mm/hr (0-30)
[2016-08-28] MEDS ORDERED: LEVAQUIN 5500 MG/TA1 PO (10:15)
[2016-08-28] MEDS ORDERED: NORCO 325 MG-7.1 TAB PO (10:16)
[2016-08-28 10:35] VITALS: BP 116/59; PULSE 64; TEMP 97.4
[2016-08-28 10:38] VITALS: BP 143/76; PULSE 69
[2016-08-28 11:00] VITALS: BP 162/74; PULSE 67
[2016-08-28 11:15] VITALS: BP 119/58; PULSE 64
[2016-08-28 11:30] VITALS: BP 116/59; PULSE 64
[2016-10-22] MEDS ORDERED: XARELTO10 MG PO (11:41)
[2016-10-22] MEDS ORDERED: FERROUS SU325 MG/TAB PO (11:41)
[2016-10-22] MEDS ORDERED: TENORMIN 5050 MG/TAB PO (11:42)
[2016-10-22] MEDS ORDERED: TYLENOL 325MG325 MG PO (11:43)
[2016-10-22] MEDS ORDERED: COLACE 100100 MG/CAP PO (11:43)
[2016-10-22] MEDS ORDERED: COZAAR 50MG50 MG/TAB PO (11:44)
== END 2016-08-28 12:38 | disposition home or self-care (01) ==
LOC: SDCO 06:02
PROVIDERS: Orthopaedic Surgery
DX: L97.419 Non-pressure chronic ulcer of right heel and midfoot with unspecified severity (principal); E11.40 Type 2 diabetes mellitus with diabetic neuropathy, unspecified; S92.301A Fracture of unspecified metatarsal bone(s), right foot, initial encounter for closed fracture; Z79.4 Long term (current) use of insulin; D64.9 Anemia, unspecified; Z80.0 Family history of malignant neoplasm of digestive organs; Z82.49 Family history of ischemic heart disease and other diseases of the circulatory system; Z86.14 Personal history of Methicillin resistant Staphylococcus aureus infection; N19 Unspecified kidney failure; I13.2 Hypertensive heart and chronic kidney disease with heart failure and with stage 5 chronic kidney disease, or end stage renal disease; E11.22 Type 2 diabetes mellitus with diabetic chronic kidney disease; N18.6 End stage renal disease; I50.20 Unspecified systolic (congestive) heart failure; Z86.73 Personal history of transient ischemic attack (TIA), and cerebral infarction without residual deficits
CPT/HCPCS: J0690; J2250; J2704; J2795; J3010; J7030

== ENCOUNTER 2016-09-28 05:47 | Day surgery (SDC) | payer BC ==
[~2016-09-28] VITALS: Ht 200.7 cm; Wt 127.1 kg
[2016-09-28 06:34] VITALS: BP 127/78; PULSE 95; TEMP 98.3
[2016-09-28 09:02] VITALS: BP 115/71; PULSE 73; TEMP 97.3
[2016-09-28 09:15] VITALS: BP 121/80; PULSE 69
[2016-09-28 09:30] VITALS: BP 129/70; PULSE 71
[2016-09-28] MEDS ORDERED: LEVAQUIN 5500 MG/TA1 PO (09:30)
[2016-09-28 09:45] VITALS: BP 141/84; PULSE 70
[2016-10-22] MEDS ORDERED: FERROUS SU325 MG/TAB PO (11:41)
[2016-10-22] MEDS ORDERED: XARELTO10 MG PO (11:41)
[2016-10-22] MEDS ORDERED: TENORMIN 5050 MG/TAB PO (11:42)
[2016-10-22] MEDS ORDERED: COLACE 100100 MG/CAP PO (11:43)
[2016-10-22] MEDS ORDERED: TYLENOL 325MG325 MG PO (11:43)
[2016-10-22] MEDS ORDERED: COZAAR 50MG50 MG/TAB PO (11:44)
== END 2016-09-28 10:26 | disposition home or self-care (01) ==
LOC: SDCO 05:47
DX: T81.30XA Disruption of wound, unspecified, initial encounter (principal); I13.0 Hypertensive heart and chronic kidney disease with heart failure and stage 1 through stage 4 chronic kidney disease, or unspecified chronic kidney disease; E11.22 Type 2 diabetes mellitus with diabetic chronic kidney disease; N18.9 Chronic kidney disease, unspecified; I50.9 Heart failure, unspecified; D64.9 Anemia, unspecified; Z79.4 Long term (current) use of insulin; Z86.73 Personal history of transient ischemic attack (TIA), and cerebral infarction without residual deficits; Z82.49 Family history of ischemic heart disease and other diseases of the circulatory system
CPT/HCPCS: J0690; J2704; J2765; J7030

== ENCOUNTER → 2016-10-01 | Outpatient (CLI) | payer BC ==
[~2016-10-01] MED LIST changes: +COLACE 100100 MG/CAP PO; +COZAAR 50MG50 MG/TAB PO; +FERROUS SU325 MG/TAB PO; +TENORMIN 5050 MG/TAB PO; +TYLENOL 325MG325 MG PO
== END ==
LOC: COL.VAS 15:04
DX: M79.604 Pain in right leg (principal); R60.0 Localized edema

== ENCOUNTER 2017-01-08 13:20 | Inpatient (IN) | payer BC ==
[~2017-01-08] VITALS: Ht 200.7 cm; Wt 119.2 kg
[2017-01-08] MEDS ORDERED: LANTUS SOLOS100 U/ML SQ (16:58)
[2017-01-08] MEDS ORDERED: CATAPRES 0.1MG0.1 MG (16:59)
[2017-01-08 18:37] LABS: MEAN CELL VOLUME 77 fl (80.0-100.0); MEAN CORPUSCULAR HGB CONC 35 g/dl (33.0-37.0); MEAN PLATELET VOLUME 10.2 fl (7.4-10.4); PLATELET COUNT 259 K/mm3 (130-400); RED BLOOD COUNT 3.99 M/mm3 (4.20-5.60); WHITE BLOOD COUNT 7.7 K/mm3 (4.8-10.8)
[2017-01-08 18:40] LABS: HEMATOCRIT 30.8 % (42.0-52.0); HEMOGLOBIN 10.7 g/dl (13.5-18.0); MEAN CORPUSCULAR HEMOGLOBIN 27 pg (27.0-31.0)
[2017-01-08 18:48] VITALS: BP 142/64; PULSE 87; TEMP 98.2
[2017-01-08 18:51] LABS: ADJUSTED CALCIUM 9.4 mg/dL (8.4-10.2); ALBUMIN 3.7 gm/dL (3.5-5.0); BILIRUBIN,TOTAL 0.8 mg/dL (0.0-1.0); C-REACTIVE PROTEIN 6.6 mg/dL (0.0-0.9); CALCIUM 9.2 mg/dL (8.4-10.2); CREATININE, serum 2.06 mg/dL (0.66-1.25); POTASSIUM 4.2 mmol/L (3.4-5.0)
[2017-01-08 19:00] LABS: ERYTHROCYTE SEDIMENTATION RATE 87 mm/hr (0-30)
[2017-01-09] VITALS (13 sets, daily range): BP systolic 120–191; BP diastolic 49–477; PULSE 73–87; TEMP 97–98.8
[2017-01-10 05:55] VITALS: BP 162/77; PULSE 95; TEMP 99
[2017-01-10 07:19] LABS: HEMATOCRIT 26.7 % (42.0-52.0)
[2017-01-10 07:26] LABS: CREATININE, serum 1.8 mg/dL (0.66-1.25); POTASSIUM 4.1 mmol/L (3.4-5.0)
[2017-01-10 10:14] VITALS: BP 154/90; PULSE 85; TEMP 98.5
[2017-01-10 14:12] VITALS: BP 120/76; PULSE 83; TEMP 98.9
[2017-01-10 18:04] VITALS: BP 150/71; PULSE 88; TEMP 98.2
[2017-01-10 21:29] VITALS: BP 163/81; PULSE 86; TEMP 99.5
[2017-01-11 05:06] VITALS: BP 149/65; PULSE 74; TEMP 98.6
[2017-01-11 08:27] LABS: HEMATOCRIT 25.3 % (42.0-52.0); HEMOGLOBIN 8.4 g/dl (13.5-18.0)
[2017-01-11 08:32] LABS: CALCIUM 8.7 mg/dL (8.4-10.2); CREATININE, serum 1.68 mg/dL (0.66-1.25); POTASSIUM 4.8 mmol/L (3.4-5.0)
[2017-01-11 08:58] LABS: C-REACTIVE PROTEIN 15.4 mg/dL (0.0-0.9)
[2017-01-11 09:13] VITALS: BP 123/72; PULSE 98; TEMP 98.8
[2017-01-11 13:16] VITALS: BP 172/86; PULSE 86; TEMP 99.3
[2017-01-11 16:57] VITALS: BP 183/89; PULSE 87; TEMP 98.2
[2017-01-11 22:04] VITALS: BP 184/88; PULSE 92; TEMP 98.3
[2017-01-12 02:54] VITALS: BP 179/88; PULSE 81; TEMP 98.5
[2017-01-12 05:09] VITALS: BP 167/75; PULSE 69; TEMP 98
[2017-01-12 07:15] VITALS: BP 160/86; PULSE 85; TEMP 98
[2017-01-12] MEDS ORDERED: DOXYCYCLINE HY100 MG PO (12:36)
[2017-01-12] MEDS ORDERED: NORCO 325 MG-7.1 TAB PO (12:36)
[2017-01-12] MEDS ORDERED: FERRO-TIME325 MG PO (12:37)
== END 2017-01-12 14:00 | disposition home or self-care (01) | DRG 476 ==
LOC: SURG 13:20
PROVIDERS: Orthopaedic Surgery
PROC: 0Y6H0Z3 Detachment at Right Lower Leg, Low, Open Approach (ICD-10-PCS; principal; 2017-01-09 11:00)
DX: T87.43 Infection of amputation stump, right lower extremity (principal); T87.81 Dehiscence of amputation stump; E11.40 Type 2 diabetes mellitus with diabetic neuropathy, unspecified; I12.9 Hypertensive chronic kidney disease with stage 1 through stage 4 chronic kidney disease, or unspecified chronic kidney disease; E11.22 Type 2 diabetes mellitus with diabetic chronic kidney disease; N18.9 Chronic kidney disease, unspecified; Z79.4 Long term (current) use of insulin; Z91.81 History of falling; Z86.73 Personal history of transient ischemic attack (TIA), and cerebral infarction without residual deficits
CPT/HCPCS: A9284; J0171; J0690; J0692; J0696; J1815; J2250; J2405; J2704; J2795; J3010; J3370; J7030; J7050

== ENCOUNTER 2017-07-04 19:40 | Inpatient (IN) | payer BC ==
[~2017-07-04] VITALS: Ht 200.7 cm; Wt 124.8 kg
[~2017-07-04 19:40] MED LIST changes: +CATAPRES 0.1MG0.1 MG; +DOXYCYCLINE HY100 MG PO; +FERRO-TIME325 MG PO
[2017-07-04] MEDS ORDERED: DIFLUCAN 100MG100 MG PO (20:07)
[2017-07-04 20:22] LABS: BASO # 0.1 (0.0-0.2); BASO % 0.7 % (0.0-2.0); EOS # 0.1 (0.0-0.7); EOS % 0.7 % (0-4.0); GRAN # 6.6 (1.4-6.5); GRAN % 73.5 % (42.2-75.2); HEMATOCRIT 38.2 % (42.0-52.0); HEMOGLOBIN 13.3 g/dl (13.5-18.0); LYMPH # 1.4 (1.2-3.4); LYMPH % 15.8 % (20.0-51.0); MEAN CELL VOLUME 79 fl (80.0-100.0); MEAN CORPUSCULAR HEMOGLOBIN 28 pg (27.0-31.0); MEAN CORPUSCULAR HGB CONC 35 g/dl (33.0-37.0); MEAN PLATELET VOLUME 10.5 fl (7.4-10.4); MONO # 0.8 (0.1-0.6); MONO % 9.2 % (1.7-9.3); PLATELET COUNT 263 K/mm3 (130-400); RED BLOOD COUNT 4.83 M/mm3 (4.20-5.60)
[2017-07-04 20:26] LABS: PROTHROMBIN TIME 11.2 SECONDS (9.7-12.8)
[2017-07-04 20:39] LABS: BILIRUBIN,TOTAL 0.6 mg/dL (0.0-1.0); CALCIUM 9.4 mg/dL (8.4-10.2); CREATININE, serum 2.42 mg/dL (0.66-1.25); POTASSIUM 4.1 mmol/L (3.4-5.0); TOTAL PROTEIN 7.5 gm/dL (6.4-8.2)
[2017-07-04 20:49] LABS: TROPONIN-I 0.023 ng/mL (0.000-0.034)
[2017-07-04 22:44] VITALS: BP 179/113; TEMP 98.7
[2017-07-05] VITALS (9 sets, daily range): BP systolic 164–206; BP diastolic 70–107; PULSE 75–86; TEMP 97.7–98.5
[2017-07-05 00:10] LABS: COLLECTION METHOD CLEAN CATCH
[2017-07-05 02:14] LABS: MUCOUS Present /lpf; PH 5 (5-8); SQUAMOUS EPITHELIAL None Seen /hpf; URINE APPEARANCE Clear; URINE BACTERIA None Seen /hpf; URINE BILIRUBIN Negative (NEGATIVE); URINE BLOOD 1+ (NEGATIVE); URINE COLOR Yellow; URINE GLUCOSE 3+ (NEGATIVE); URINE KETONE Negative (NEGATIVE); URINE LEUKOCYTE ESTERASE Negative (NEGATIVE); URINE NITRATE Negative (NEGATIVE); URINE PROTEIN(semi-quant) 3+ (NEGATIVE); URINE RBC 0-2 /hpf; URINE UROBILINOGEN Negative (NEGATIVE); URINE WBC 0-2 /hpf
[2017-07-05 04:26] LABS: TRICYCLIC ANTIDEPRESS URINE NEGATIVE
[2017-07-05 07:39] LABS: BASO # 0.1 (0.0-0.2); BASO % 0.7 % (0.0-2.0); EOS # 0.1 (0.0-0.7); EOS % 1.7 % (0-4.0); GRAN # 4.3 (1.4-6.5); HEMOGLOBIN 11.8 g/dl (13.5-18.0); LYMPH # 1.9 (1.2-3.4); LYMPH % 27.7 % (20.0-51.0); MEAN CELL VOLUME 81 fl (80.0-100.0); MEAN CORPUSCULAR HEMOGLOBIN 28 pg (27.0-31.0); MEAN CORPUSCULAR HGB CONC 35 g/dl (33.0-37.0); MEAN PLATELET VOLUME 10.9 fl (7.4-10.4); MONO # 0.5 (0.1-0.6); MONO % 7.8 % (1.7-9.3); PLATELET COUNT 221 K/mm3 (130-400); RED BLOOD COUNT 4.21 M/mm3 (4.20-5.60); REDCELL DISTRIBUTION WIDTH-CV 13.2 % (11.5-14.5)
[2017-07-05 07:43] LABS: CALCIUM 8.6 mg/dL (8.4-10.2); CHOLESTEROL RISK RATIO 5.4; CREATININE, serum 1.75 mg/dL (0.66-1.25); POTASSIUM 3.4 mmol/L (3.4-5.0)
[2017-07-06] VITALS (8 sets, daily range): BP systolic 146–221; BP diastolic 79–114; PULSE 82–99; TEMP 97.7–98.5
[2017-07-07 03:56] VITALS: BP 168/107; PULSE 90; TEMP 98.5
[2017-07-07 06:24] LABS: BASO # 0.1 (0.0-0.2); BASO % 0.6 % (0.0-2.0); EOS # 0.1 (0.0-0.7); EOS % 1.5 % (0-4.0); GRAN # 5.5 (1.4-6.5); GRAN % 70.8 % (42.2-75.2); HEMOGLOBIN 11.6 g/dl (13.5-18.0); LYMPH # 1.5 (1.2-3.4); LYMPH % 19.7 % (20.0-51.0); MEAN CELL VOLUME 82 fl (80.0-100.0); MEAN CORPUSCULAR HEMOGLOBIN 28 pg (27.0-31.0); MEAN CORPUSCULAR HGB CONC 34 g/dl (33.0-37.0); MEAN PLATELET VOLUME 10.6 fl (7.4-10.4); MONO # 0.5 (0.1-0.6); PLATELET COUNT 221 K/mm3 (130-400); RED BLOOD COUNT 4.17 M/mm3 (4.20-5.60); REDCELL DISTRIBUTION WIDTH-CV 13.2 % (11.5-14.5)
[2017-07-07 06:26] LABS: HEMATOCRIT 34.2 % (42.0-52.0)
[2017-07-07 06:45] LABS: CALCIUM 8.6 mg/dL (8.4-10.2); CREATININE, serum 1.4 mg/dL (0.66-1.25)
[2017-07-07 07:57] VITALS: BP 187/99; PULSE 88; TEMP 98.8
[2017-07-07] MEDS ORDERED: PLAVIX 75MG TAB75 MG PO (08:55)
[2017-07-07] MEDS ORDERED: TYLENOL 325MG325 MG PO (08:55)
[2017-07-07] MEDS ORDERED: LIPITOR20 MG PO (08:55)
[2017-07-07] MEDS ORDERED: APRESOLINE 10MG10 MG PO (09:31)
[2017-07-07] MEDS ORDERED: COZAAR 25MG25 MG/TAB PO (09:34)
[2017-07-07] MEDS ORDERED: ASPIRIN E.C. 8181 MG PO (09:35)
[2017-07-07] MEDS ORDERED: NOVOLOG FLEX100 U/ML SQ (09:36)
[2017-07-07] MEDS ORDERED: LEVEMIR FLEX100 U/ML SQ (09:36)
== END 2017-07-07 10:25 | DRG 65 ==
LOC: COL.ER 19:40 → MEDICAL 21:32
PROVIDERS: Emergency Medicine; Nurse Practitioner; Physician Assistant
DX: I63.9 Cerebral infarction, unspecified (principal); G81.94 Hemiplegia, unspecified affecting left nondominant side; N17.9 Acute kidney failure, unspecified; E11.22 Type 2 diabetes mellitus with diabetic chronic kidney disease; I12.9 Hypertensive chronic kidney disease with stage 1 through stage 4 chronic kidney disease, or unspecified chronic kidney disease; N18.9 Chronic kidney disease, unspecified; E11.65 Type 2 diabetes mellitus with hyperglycemia; Z89.511 Acquired absence of right leg below knee; E11.40 Type 2 diabetes mellitus with diabetic neuropathy, unspecified
CPT/HCPCS: 99222-AI; 99223-AI; 99231-AI; 99239; J0360; J1644; J1815; J2405; J7030

== ENCOUNTER 2017-07-07 10:25 | Inpatient (IN) | payer BC, OTHER ==
[~2017-07-07] VITALS: Ht 200.7 cm; Wt 134.7 kg
[~2017-07-07 10:25] MED LIST changes: +APRESOLINE 10MG10 MG PO; +ASPIRIN E.C. 8181 MG PO; +COZAAR 25MG25 MG/TAB PO; +DIFLUCAN 100MG100 MG PO; +LEVEMIR FLEX100 U/ML SQ; +LIPITOR20 MG PO; +PLAVIX 75MG TAB75 MG PO
[2017-07-07 11:19] VITALS: BP 162/91; PULSE 93; TEMP 98.3
[2017-07-07 16:39] VITALS: BP 187/99; PULSE 87; TEMP 97.9
[2017-07-08 05:52] VITALS: BP 186/92; PULSE 84; TEMP 97.8
[2017-07-08 15:23] VITALS: BP 207/77; PULSE 88; TEMP 98
[2017-07-08 20:38] VITALS: BP 181/97
[2017-07-09 04:24] VITALS: BP 189/83; PULSE 73; TEMP 97.1
[2017-07-09 07:50] LABS: CALCIUM 8.8 mg/dL (8.4-10.2); CREATININE, serum 1.5 mg/dL (0.66-1.25); POTASSIUM 4.3 mmol/L (3.4-5.0)
[2017-07-09 16:23] VITALS: BP 180/90; PULSE 93; TEMP 98
[2017-07-10 06:24] VITALS: BP 180/94; PULSE 78; TEMP 97.5
[2017-07-10 17:32] VITALS: BP 182/84; PULSE 84; TEMP 98.5
[2017-07-11 05:22] VITALS: BP 180/106; PULSE 82; TEMP 97.5
[2017-07-11 18:18] VITALS: BP 159/96; PULSE 93; TEMP 98.5
[2017-07-12 04:49] VITALS: BP 158/80; PULSE 82; TEMP 97.9
[2017-07-12 15:00] VITALS: BP 185/90; PULSE 80; TEMP 98
[2017-07-13 05:41] VITALS: BP 172/95; PULSE 75; TEMP 97.3
[2017-07-13 05:49] VITALS: BP 177/97; PULSE 74; TEMP 97.9
[2017-07-13 14:33] VITALS: BP 156/97; PULSE 86; TEMP 98.3
[2017-07-14 06:00] VITALS: BP 172/98; PULSE 75; TEMP 97.5
[2017-07-14 15:08] VITALS: BP 149/85; PULSE 84; TEMP 98.4
[2017-07-15 05:32] VITALS: BP 157/89; PULSE 74; TEMP 98.8
[2017-07-15 15:40] VITALS: BP 176/86; PULSE 85; TEMP 98.4
[2017-07-16 05:09] VITALS: BP 157/85; PULSE 78; TEMP 98.4
[2017-07-16 07:11] LABS: CREATININE, serum 1.63 mg/dL (0.66-1.25); MAGNESIUM 1.9 mg/dL (1.6-2.3); POTASSIUM 4.3 mmol/L (3.4-5.0)
[2017-07-16 17:02] VITALS: BP 189/108; PULSE 76; TEMP 98.2
[2017-07-16 19:15] VITALS: BP 173/81
[2017-07-17 05:46] VITALS: BP 160/84; PULSE 80; TEMP 98.4
[2017-07-17 18:04] VITALS: BP 170/94; PULSE 67; TEMP 98.2
[2017-07-18 06:00] VITALS: BP 148/68; PULSE 60; TEMP 97.5
[2017-07-18 16:04] VITALS: BP 187/93; PULSE 64; TEMP 97.2
[2017-07-19 05:18] VITALS: BP 163/97; PULSE 66; TEMP 98.2
[2017-07-19 16:14] VITALS: BP 170/82; PULSE 68; TEMP 98.2
[2017-07-20 05:19] VITALS: BP 191/87; PULSE 64; TEMP 98.2
[2017-07-20 14:55] VITALS: BP 160/86; PULSE 66; TEMP 98.4
[2017-07-21 05:35] VITALS: BP 160/75; PULSE 63; TEMP 97.8
[2017-07-21 17:06] VITALS: BP 151/84; PULSE 70; TEMP 97.8
[2017-07-22 05:14] VITALS: BP 170/75; PULSE 62; TEMP 98.1
[2017-07-22 18:49] VITALS: BP 155/78; PULSE 77; TEMP 97.8
[2017-07-23 05:23] VITALS: BP 153/91; PULSE 66; TEMP 98.4
[2017-07-23 06:39] LABS: CREATININE, serum 1.71 mg/dL (0.66-1.25); MAGNESIUM 1.8 mg/dL (1.6-2.3)
[2017-07-23 19:19] VITALS: BP 154/82; PULSE 65; TEMP 98.1
[2017-07-24 05:33] VITALS: BP 150/84; PULSE 70; TEMP 98.2
[2017-07-24 16:53] VITALS: BP 142/86; PULSE 69; TEMP 98.5
[2017-07-25 06:00] VITALS: BP 153/68; PULSE 56; TEMP 97.9
[2017-07-25 16:35] VITALS: BP 158/75; PULSE 66; TEMP 97.9
[2017-07-26 06:00] VITALS: BP 152/83; PULSE 64; TEMP 97.6
[2017-07-26 15:24] VITALS: BP 153/70; PULSE 64; TEMP 98.2
[2017-07-27 04:55] VITALS: BP 149/78; PULSE 84; TEMP 98.5
[2017-07-27 15:54] VITALS: BP 155/82; PULSE 64; TEMP 97.8
[2017-07-28 04:36] VITALS: BP 156/78; PULSE 76; TEMP 98.1
[2017-07-28 08:01] LABS: CALCIUM 9.5 mg/dL (8.4-10.2); CREATININE, serum 1.63 mg/dL (0.66-1.25); MAGNESIUM 1.8 mg/dL (1.6-2.3); POTASSIUM 4.3 mmol/L (3.4-5.0)
[2017-07-28 15:42] VITALS: BP 159/73; PULSE 66; TEMP 97.8
[2017-07-29 06:00] VITALS: BP 170/80; PULSE 63; TEMP 97.9
[2017-07-29 18:03] VITALS: BP 124/62; PULSE 61; TEMP 98.3
[2017-07-30 05:58] VITALS: BP 151/78; PULSE 61; TEMP 97.7
[2017-07-30 16:25] VITALS: BP 148/79; PULSE 65; TEMP 98.3
[2017-07-31 05:37] VITALS: BP 159/83; PULSE 65; TEMP 98.4
[2017-07-31 16:11] VITALS: BP 147/72; PULSE 60; TEMP 98.4
[2017-08-01 04:36] VITALS: BP 154/74; PULSE 54; TEMP 98.6
[2017-08-01 15:10] VITALS: BP 135/70; PULSE 64; TEMP 98.5
[2017-08-02 04:30] VITALS: BP 161/85; PULSE 59; TEMP 98.3
[2017-08-02 07:45] VITALS: PULSE 65
[2017-08-02 18:00] VITALS: BP 152/77; PULSE 66; TEMP 98
[2017-08-03 06:00] VITALS: BP 174/80; PULSE 60; TEMP 97.5
[2017-08-03 12:06] VITALS: BP 140/70
[2017-08-03 17:13] VITALS: BP 153/75; PULSE 59; TEMP 98.1
[2017-08-04 05:32] VITALS: BP 155/83; PULSE 60; TEMP 97.4
[2017-08-04 18:00] VITALS: BP 120/78; PULSE 62; TEMP 98.4
[2017-08-05 05:00] VITALS: BP 164/75; PULSE 60; TEMP 97.8
[2017-08-05 14:58] VITALS: BP 138/73; PULSE 67; TEMP 98.1
[2017-08-06 07:46] VITALS: BP 159/76; PULSE 58; TEMP 98.4
[2017-08-06 09:40] LABS: CALCIUM 8.7 mg/dL (8.4-10.2); CREATININE, serum 1.89 mg/dL (0.66-1.25); POTASSIUM 4.3 mmol/L (3.4-5.0)
[2017-08-06 18:08] VITALS: BP 166/82; PULSE 66; TEMP 97.9
[2017-08-07 07:28] VITALS: BP 173/77; PULSE 60; TEMP 98
[2017-08-07 21:00] VITALS: BP 160/68; PULSE 64; TEMP 98.4
[2017-08-08 07:30] VITALS: BP 169/70; PULSE 62; TEMP 98.2
[2017-08-08 18:06] VITALS: BP 176/83; PULSE 61; TEMP 97.8
[2017-08-09 06:50] VITALS: BP 170/76; PULSE 54; TEMP 98
[2017-08-09 09:10] LABS: CALCIUM 8.9 mg/dL (8.4-10.2); CREATININE, serum 1.68 mg/dL (0.66-1.25); POTASSIUM 4.5 mmol/L (3.4-5.0)
[2017-08-09 18:08] VITALS: BP 161/82; PULSE 61; TEMP 97.8
[2017-08-10 06:13] VITALS: BP 158/74; PULSE 60; TEMP 97.7
[2017-08-10 14:50] VITALS: BP 132/69; PULSE 67; TEMP 98.3
[2017-08-11 07:16] VITALS: BP 172/79; PULSE 59; TEMP 97.9
[2017-08-11 12:08] VITALS: BP 156/73; PULSE 65
[2017-08-11 20:00] VITALS: BP 151/73; PULSE 66; TEMP 98.9
[2017-08-12 06:22] VITALS: BP 150/83; PULSE 56; TEMP 97.8
[2017-08-12 10:00] VITALS: BP 159/71; PULSE 70; TEMP 98.2
[2017-08-12 19:47] VITALS: BP 142/62; PULSE 72; TEMP 97.9
[2017-08-13 06:31] VITALS: BP 162/76; PULSE 58; TEMP 97.4
[2017-08-13 15:21] VITALS: BP 148/78; PULSE 65; TEMP 98.2
[2017-08-14 06:26] VITALS: BP 142/66; PULSE 58; TEMP 98.1
[2017-08-14 15:58] VITALS: BP 174/81; PULSE 65; TEMP 98.4
[2017-08-15 06:19] VITALS: BP 168/86; PULSE 59; TEMP 98.3
[2017-08-15 09:15] VITALS: PULSE 64
[2017-08-15 12:33] VITALS: BP 165/82; PULSE 65; TEMP 98.1
[2017-08-15 17:38] VITALS: BP 152/76; PULSE 63; TEMP 98
[2017-08-16 07:01] VITALS: BP 152/52; PULSE 60; TEMP 98.2
[2017-08-16 07:28] LABS: CALCIUM 9.1 mg/dL (8.4-10.2); CREATININE, serum 1.69 mg/dL (0.66-1.25); MAGNESIUM 1.8 mg/dL (1.6-2.3)
[2017-08-16 10:44] VITALS: BP 178/87; PULSE 73; TEMP 98.5
[2017-08-16 14:53] VITALS: BP 161/88; PULSE 63; TEMP 98
[2017-08-17 06:25] VITALS: BP 145/77; PULSE 58; TEMP 97.6
[2017-08-17 10:00] VITALS: BP 119/67; PULSE 68; TEMP 98.3
[2017-08-17 18:36] VITALS: BP 150/81; PULSE 70; TEMP 98.6
[2017-08-18 06:36] VITALS: BP 164/67; PULSE 61; TEMP 98
[2017-08-18 10:35] VITALS: BP 140/66; PULSE 66; TEMP 98.3
[2017-08-18 16:26] VITALS: BP 170/82; PULSE 64; TEMP 97.7
[2017-08-19 05:39] VITALS: BP 150/80; PULSE 63; TEMP 98.1
[2017-08-19 10:07] VITALS: BP 117/76; PULSE 77; TEMP 98.5
[2017-08-19 15:33] VITALS: BP 154/73; PULSE 68; TEMP 97.9
[2017-08-20 07:01] VITALS: BP 146/88; PULSE 78; TEMP 98.2
[2017-08-20 09:23] VITALS: BP 134/61; PULSE 73; TEMP 98.6
[2017-08-21 11:03] VITALS: BP 131/71; PULSE 70; TEMP 98.5
[2017-08-21 20:00] VITALS: BP 169/81; PULSE 66; TEMP 97.8
[2017-08-22 07:49] VITALS: BP 148/66; PULSE 66; TEMP 98.4
[2017-08-22 10:09] VITALS: BP 131/73; PULSE 71; TEMP 97.8
[2017-08-22 15:30] VITALS: BP 135/82; PULSE 65; TEMP 97.8
[2017-08-23 06:18] VITALS: BP 168/77; BP 176/77; PULSE 62; TEMP 98.5
[2017-08-23 10:09] VITALS: BP 117/57; PULSE 71; TEMP 98.3
[2017-08-23 16:00] VITALS: BP 150/68; PULSE 72; TEMP 97.7
[2017-08-24 06:54] VITALS: BP 140/74; PULSE 74; TEMP 98.2
[2017-08-24 10:00] VITALS: BP 132/63; PULSE 67; TEMP 98.3
[2017-08-24 20:00] VITALS: BP 182/80; PULSE 71; TEMP 98.1
[2017-08-25 06:40] VITALS: BP 138/74; PULSE 62; TEMP 97.8
[2017-08-25 10:01] VITALS: BP 104/60; PULSE 57; TEMP 98.1
[2017-08-25 17:01] VITALS: BP 167/75; PULSE 66; TEMP 98.2
[2017-08-26 06:31] VITALS: BP 139/74; PULSE 61; TEMP 97.7
[2017-08-26 11:18] VITALS: BP 149/78; PULSE 68; TEMP 97.5
[2017-08-26 16:05] VITALS: BP 150/68; PULSE 68; TEMP 98.4
[2017-08-26 20:00] VITALS: BP 135/69; PULSE 68; TEMP 98.5
[2017-08-27 06:36] VITALS: BP 160/74; PULSE 65; TEMP 98
[2017-08-27 07:21] LABS: CALCIUM 8.8 mg/dL (8.4-10.2); CREATININE, serum 1.83 mg/dL (0.66-1.25); MAGNESIUM 1.8 mg/dL (1.6-2.3); POTASSIUM 3.9 mmol/L (3.4-5.0)
[2017-08-27] MEDS ORDERED: DIFLUCAN 100MG100 MG PO (09:48)
[2017-08-27] MEDS ORDERED: APRESOLINE 25MG25 MG PO (09:49)
[2017-08-27] MEDS ORDERED: NORVASC 10MG10 MG PO (09:49)
[2017-08-27] MEDS ORDERED: COZAAR100 MG PO (09:49)
[2017-08-27] MEDS ORDERED: HCTZ 25MG TAB25 MG PO (09:50)
[2017-08-27] MEDS ORDERED: DULCOLAX S10 MG/SUPP RC (09:50)
[2017-08-27] MEDS ORDERED: COLACE 100100 MG/CAP PO (09:50)
[2017-08-27] MEDS ORDERED: MIRALAX PA17 GM/Dose PO (09:51)
[2017-08-27] MEDS ORDERED: SENOKOT S 50 MG1 TAB PO (09:51)
[2017-08-27] MEDS ORDERED: LEVEMIR FLEX100 U/ML SQ (09:52)
[2017-08-27] MEDS ORDERED: GOOD SENSE TRIP1 OI1 TP (09:53)
[2017-08-27] MEDS ORDERED: DESENEX TP (09:53)
[2017-08-27] MEDS ORDERED: NOVOLOG FLEX100 U/ML SQ ×2 (09:53)
[2017-08-27] MEDS ORDERED: HYDROCORTISON28.4 GM TP (09:54)
[2017-08-27] MEDS ORDERED: MELAT3MGTAB PO (09:54)
[2017-08-27] MEDS ORDERED: TENORMIN 5050 MG/TAB PO (10:56)
== END 2017-08-27 11:15 | DRG 57 ==
PROVIDERS: Internal Medicine
DX: I69.354 Hemiplegia and hemiparesis following cerebral infarction affecting left non-dominant side (principal); Z68.41 Body mass index [BMI] 40.0-44.9, adult; I12.9 Hypertensive chronic kidney disease with stage 1 through stage 4 chronic kidney disease, or unspecified chronic kidney disease; N18.9 Chronic kidney disease, unspecified; E11.649 Type 2 diabetes mellitus with hypoglycemia without coma; Z79.4 Long term (current) use of insulin; Z89.511 Acquired absence of right leg below knee; E11.22 Type 2 diabetes mellitus with diabetic chronic kidney disease; E66.01 Morbid (severe) obesity due to excess calories
CPT/HCPCS: 99222-AI; 99231-AI; 99232-AI; 99239; J1644; J1650; J1815

== ENCOUNTER → 2020-11-27 | Outpatient (CLI) | payer MEDICARE ==
[~2020-11-27] MED LIST changes: +CARDURA 2MG2 MG PO; +CATAPRES 0.1MG0.1 MG PO; +COREG 25MG25 MG/TAB PO; +COZAAR100 MG PO; +DEMADEX 20MG20 M1 PO; +DESENEX TP; +DULCOLAX S10 MG/SUPP RC; +GOOD SENSE TRIP1 OI1 TP; +HCTZ 25MG TAB25 MG PO; +HYDRALAZINE HC100 MG PO; +HYDROCORTISON28.4 GM TP; +MELAT3MGTAB PO; +MINOXIDIL 2.5 PO; +MIRALAX PA17 GM/Dose PO; +NORCO 325 MG-51 TAB PO; +PHOS LO; +SENOKOT S 50 MG1 TAB PO
== END ==
LOC: COL.VAS 12:31
DX: N18.4 Chronic kidney disease, stage 4 (severe) (principal)

== ENCOUNTER 2021-01-10 09:05 | Day surgery (SDC) | payer MEDICARE ==
[~2021-01-10] VITALS: Ht 200.7 cm; Wt 125.0 kg
[~2021-01-10 09:05] MED LIST changes: -CARDURA 2MG2 MG PO; -CATAPRES 0.1MG0.1 MG PO; -COREG 25MG25 MG/TAB PO; -DEMADEX 20MG20 M1 PO; -HYDRALAZINE HC100 MG PO; -MINOXIDIL 2.5 PO; -NORCO 325 MG-51 TAB PO; -PHOS LO
[2021-01-10] MEDS ORDERED: DEMADEX 20MG20 M1 PO (11:34)
[2021-01-10] MEDS ORDERED: CATAPRES 0.1MG0.1 MG PO (11:35)
[2021-01-10] MEDS ORDERED: COREG 25MG25 MG/TAB PO (11:37)
[2021-01-10] MEDS ORDERED: HYDRALAZINE HC100 MG PO ×2 (11:37)
[2021-01-10] MEDS ORDERED: LEVEMIR FLEX100 U/ML SQ (11:39)
[2021-01-10] MEDS ORDERED: CARDURA 2MG2 MG PO (11:39)
[2021-01-10] MEDS ORDERED: MINOXIDIL 2.5 PO (11:41)
[2021-01-10] MEDS ORDERED: COZAAR 25MG25 MG/TAB PO (11:41)
[2021-01-10] MEDS ORDERED: PHOS LO (11:41)
[2021-01-10] MEDS ORDERED: FERRO-TIME325 MG PO (11:42)
[2021-01-10 11:45] LABS: CALCIUM 8.9 mg/dL (8.4-10.2); CREATININE, serum 3.88 mg/dL (0.72-1.25)
[2021-01-10 11:46] LABS: POTASSIUM 2.8 mmol/L (3.5-4.5)
[2021-01-10 11:48] VITALS: BP 138/74; PULSE 78; TEMP 97.9
[2021-01-10] MEDS ORDERED: NORCO 325 MG-51 TAB PO (13:47)
[2021-01-10 13:51] VITALS: BP 112/56; PULSE 67; TEMP 97
--- NOTE | 2021-01-10 13:51 | NUR ---
Patient arrived on cart from OR. Patient is alert and oriented x3, however he is sleepy. Patient requested ice water and a muffin to eat. Report obtained. Vitals obatined. Patients are was repositioned on a pillow to help support it. His incision is clean, dry and edges are well approximated. Call hayes is next to functional hand on right side.
[2021-01-10 14:06] VITALS: BP 143/68; PULSE 74
--- NOTE | 2021-01-10 14:06 | NUR ---
Patient is tolerating his ice water and warm muffin. Blood sugar obtained. Vitals obtained.
[2021-01-10 14:21] VITALS: BP 153/76; PULSE 79
--- NOTE | 2021-01-10 14:21 | NUR ---
Patient denies having any pain. Vitals obtained and IV discontined after. Catheter tip intact. Pressure dressing intact. Patient was assisted into his shirt and then re-covered with blankets. Patient called his sister at this time.
--- NOTE | 2021-01-10 14:30 | NUR ---
Discharge instructions and patient education reviewed at this time. Patient verbalized understanding of instuctions and educational information. Patient stated having no further questions or concerns and signed the related paperwork.
--- NOTE | 2021-01-10 14:45 | NUR ---
Patient was assisted into his wheelchair by OXANA Valera and OXANA Adams. Patient was able to move himself from the edge of the bed, into his chair. RN's made sure the wheelchair was stablized and assisted him. Patient then lifted his right leg into the wheelchair leg support. Patient was escorted out to the main patient entrence by OXANA Valera. RN is holding his discharge folder and gave it to his sister upon arrival. Patient was able to pull himself into the passanger seat with minimal assistance. His sister held the door and the RN held the wheelchair. Patient was transferred into the care of his sister at this time, who is present to drive.
== END 2021-01-10 14:55 | disposition home or self-care (01) ==
LOC: SDCO 09:05
PROVIDERS: Surgery
DX: E11.22 Type 2 diabetes mellitus with diabetic chronic kidney disease (principal); E11.42 Type 2 diabetes mellitus with diabetic polyneuropathy; I13.2 Hypertensive heart and chronic kidney disease with heart failure and with stage 5 chronic kidney disease, or end stage renal disease; I50.9 Heart failure, unspecified; N18.5 Chronic kidney disease, stage 5; D63.1 Anemia in chronic kidney disease; I73.9 Peripheral vascular disease, unspecified; I69.354 Hemiplegia and hemiparesis following cerebral infarction affecting left non-dominant side; E78.5 Hyperlipidemia, unspecified; Z79.4 Long term (current) use of insulin; Z79.02 Long term (current) use of antithrombotics/antiplatelets; Z89.511 Acquired absence of right leg below knee; Z79.899 Other long term (current) drug therapy; Z87.891 Personal history of nicotine dependence; Z79.82 Long term (current) use of aspirin
CPT/HCPCS: C1768; J0360; J0690; J1644; J2405; J2704; J3010; J7030

== ENCOUNTER 2021-03-31 15:53 | Inpatient (IN) | payer MEDICARE ==
[~2021-03-31] VITALS: Ht 200.7 cm; Wt 142.3 kg
[~2021-03-31 15:53] MED LIST changes: +AMOXICILLIN 50500 MG PO; +CARDURA 2MG2 MG PO; +CATAPRES 0.1MG0.1 MG PO; +COREG 25MG25 MG/TAB PO; +DEMADEX 20MG20 M1 PO; +HYDRALAZINE HC100 MG PO; +K-DUR 10 MEQ T10 MEQ PO; +MINOXIDIL 2.5 PO; +NORCO 325 MG-51 TAB PO; +PHOS LO; +ZAROXOLYN 2.52.5 MG PO
[2021-03-31 16:45] LABS: INR 1.3 (0.8-3.0); PROTHROMBIN TIME 14.5 SECONDS (9.7-12.8)
[2021-03-31 16:56] LABS: ALBUMIN 3.3 gm/dL (3.4-4.8); BILIRUBIN,TOTAL 0.4 mg/dL (0.2-1.2); C-REACTIVE PROTEIN 0.79 mg/dL (0.00-0.50); CALCIUM 8.7 mg/dL (8.4-10.2); CREATININE, serum 4.67 mg/dL (0.72-1.25); MAGNESIUM 2.3 mg/dL (1.6-2.6); POTASSIUM 3.1 mmol/L (3.5-4.5); TOTAL PROTEIN 6.7 gm/dL (6.2-8.1)
[2021-03-31 17:07] LABS: TROPONIN-I 0.036 ng/mL (0.00-0.033)
[2021-03-31 17:15] LABS: BASO # 0.1 K/mm3 (0.0-0.2); BASO % 1.2 % (0.0-2.0); EOS # 0.3 K/mm3 (0.0-0.7); EOS % 3.7 % (0.0-4.0); GRAN # 5.9 K/mm3 (1.4-6.5); GRAN % 76.6 % (42.2-75.2); LYMPH # 0.9 K/mm3 (1.2-3.4); LYMPH % 11.1 % (20.0-51.0); MEAN CELL VOLUME 87 fl (80.0-100.0); MEAN CORPUSCULAR HGB CONC 32 g/dl (33.0-37.0); MEAN PLATELET VOLUME 9.9 fl (7.4-10.4); MONO # 0.6 K/mm3 (0.1-0.6); MONO % 7.1 % (1.7-9.3); PLATELET COUNT 228 K/mm3 (130-400); RED BLOOD COUNT 3.42 M/mm3 (4.20-5.60); REDCELL DISTRIBUTION WIDTH-CV 14.3 % (11.5-14.5)
[2021-03-31 17:20] LABS: HEMATOCRIT 29.7 % (42.0-52.0); HEMOGLOBIN 9.4 g/dl (13.5-18.0); MEAN CORPUSCULAR HEMOGLOBIN 27 pg (27-31)
[2021-04-01] VITALS (8 sets, daily range): BP systolic 96–171; BP diastolic 50–88; PULSE 62–83; TEMP 97.3–98.5
--- NOTE | 2021-04-01 00:44 | NUR ---
Patient arrived to the floor from the ED at 2049. Patient is A&Ox3 and pleasant. Patient requires a sit to stand lift for transfers and was transfered to his commode and then his bed. Patient is here due to increasing edema in his left lower extremity as well as a new open wounds on his lateral and dorsal foot. Full body assessment completed as well as medication reconciliation. Vital signs are WNL. Patient tolerating oral consumption well. Patient has complaints of pain in his coccyx area, where a stage 1 pressure ulcer is present. Patient has no other complaints at this time. Call light within reach.
--- NOTE | 2021-04-01 03:27 | NUR ---
Vancomycin Initial Dosing Pharmacy Note Ordering provider: Eliu Powers MD Indication/duration: LE cellulitis and diabetic foot wound. Relevant comorbidities: DM, CKD, JOELLE, CHF LABS: WBC = 7.8, SCr= 4.67 (Baseline around 4 per patient) Recommendation: Will give loading dose and check levels for further dosing. Loading dose: 2.5 grams Maintenance dose: based on levels. Trough goal: 10-15 ug/mL
[2021-04-01 06:10] LABS: BASO # 0.1 K/mm3 (0.0-0.2); BASO % 0.8 % (0.0-2.0); EOS # 0.4 K/mm3 (0.0-0.7); EOS % 6.2 % (0.0-4.0); GRAN # 4.7 K/mm3 (1.4-6.5); GRAN % 73.6 % (42.2-75.2); LYMPH # 0.8 K/mm3 (1.2-3.4); MEAN CELL VOLUME 87 fl (80.0-100.0); MEAN CORPUSCULAR HGB CONC 32 g/dl (33.0-37.0); MEAN PLATELET VOLUME 9.6 fl (7.4-10.4); MONO # 0.5 K/mm3 (0.1-0.6); MONO % 7.1 % (1.7-9.3); PLATELET COUNT 219 K/mm3 (130-400); RED BLOOD COUNT 3.36 M/mm3 (4.20-5.60); REDCELL DISTRIBUTION WIDTH-CV 14.3 % (11.5-14.5)
[2021-04-01 06:11] LABS: HEMATOCRIT 29.1 % (42.0-52.0); HEMOGLOBIN 9.3 g/dl (13.5-18.0); MEAN CORPUSCULAR HEMOGLOBIN 28 pg (27-31)
[2021-04-01 06:28] LABS: CALCIUM 8.4 mg/dL (8.4-10.2); CREATININE, serum 4.56 mg/dL (0.72-1.25); MAGNESIUM 2.2 mg/dL (1.6-2.6); PHOSPHOROUS 3.8 mg/dL (2.3-4.7)
--- NOTE | 2021-04-01 07:30 | NUR ---
Shift assessment complete. Pt remains in contact isolation. Lung sounds diminished in bilateral bases. pitting edema noted in bilateral lower extremities, genitailia, and left arm. pt is on telemetry. no complaints of pain.
--- NOTE | 2021-04-01 09:53 | NUR ---
NEW DRESSING APPLIED TO LEFT ANKLE/FOOT WOUNDS. TELFA, GAUZE ROLL AND SPIKE WRAP. PHYSICAL THERAPY WORKING WITH PT AT THIS TIME. RAMON FELICIANO STUDENT ASSISTED WITH DRESSING CHANGE.
--- NOTE | 2021-04-01 14:56 | NUR ---
BRAD PATE EDUCATING PT AND FAMILY ON TELE HEALTH MEETING @ [id number] WITH NEPHROLOGY.
--- NOTE | 2021-04-01 15:34 | NUR ---
political worker met with patient at bedside to discuss discharge plan. Patient reports that he lives at home alone in [place] and has been having [facility] coming in for PT/OT and nursing care. Patient is wheelchair bound, but can perform his ADL's. PCP is Dr. David Juan and he utilizes [facility] for perscriptions. Patient does not have a DPOA-hc estbalished and does not wish to at this time. He has never been and has no children. Closest sibling is his sister Shania ([phone]). Patient is scheduled to have a teleahealth appointment today at 1630 with nephrology to discuss dialysis needs. Patient initial plan was to not start dialysis until May of this year. Spoke with the patient on PT/OT recommending HH vs. SNF. Patient doesn't like the idea of SNF but is also aware that he is unable to care for himself in his current state. He would like a referral sent to [facility] and [facility] as he has been there before. Second choice is [facility] in [place] due to potential dialysis needs. Discharge plan: SNF; Referrals faxed to [facility] and [facility].
--- NOTE | 2021-04-01 19:30 | NUR ---
RECEIVED CHANGE OF SHIFT REPORT FROM DAY SHIFT RN.
[2021-04-02 00:12] LABS: CALCIUM 7.7 mg/dL (8.4-10.2); CREATININE, serum 4.97 mg/dL (0.72-1.25)
[2021-04-02 00:44] VITALS: BP 114/53; PULSE 68; TEMP 98.1
--- NOTE | 2021-04-02 01:28 | NUR ---
PATIENT SLEEPING CURRENTLY, BREATHING NONLABORED AND EVEN. NEW IV SITE TO RFA IN PLACE, INFUSING IV LASIX BAGGED DOSE WITH NO PROBLEMS. PATIENT CONTINUES ON ROOM AIR, PROSTHESIS OFF TO RBKA W/SPIKE WRAP IN PLACE, PER PATIENT REQUEST. SPIKE DRSG TO L FOOT IN PLACE, NO DRAINAGE OBSERVED TO L FOOT SPIKE DRSG. GUNDERSON TO DD, DRAINING CLEAR YELLOW URINE, TELE IN PLACE.
--- NOTE | 2021-04-02 05:11 | NUR ---
INFORMED ONCALL HOSP PROVIDER OF OUTPUT FOR SHIFT, INFORMED IF HOLD PARAMETERS FOR BP MEDS AND LAB RESULTS. PROVIDER TO ENTER HOLD PARAMETER FOR MEDS WITH NO OTHER ORDERS GIVEN.
[2021-04-02 05:41] VITALS: BP 108/56; PULSE 73; TEMP 99.1
[2021-04-02 07:00] VITALS: BP 130/54; PULSE 68; TEMP 98.2
--- NOTE | 2021-04-02 07:04 | NUR ---
CHANGE OF SHIFT REPORT GIVEN TO DAY SHIFT RNBAL.
[2021-04-02 07:54] LABS: ALBUMIN 2.5 gm/dL (3.4-4.8); CALCIUM 7.8 mg/dL (8.4-10.2); CREATININE, serum 5.27 mg/dL (0.72-1.25); PHOSPHOROUS 4.5 mg/dL (2.3-4.7)
--- NOTE | 2021-04-02 08:00 | NUR ---
Shift assessment completed. Pt vomited 120ml of light brown emesis, but denies any nausea. Pt has diminished breath sounds in bases bilatterally. Significant edema noted in both lower extremities, left arm, and genitals. Genitals continue to be supported with sling. Barajas continues to be in place, with 218ml of clear yellow urine in the bag. two small open sores noted on the dorsal aspect, and one larger open sore on the lateral aspect. Pt is recieving 33ml/hr of lasix in the right forearm. Pt remains on telemetry.
--- NOTE | 2021-04-02 09:30 | NUR ---
Pt is refusing PO medications, States "I don't want to just throw them back up." Primary RN notified.
--- NOTE | 2021-04-02 09:44 | NUR ---
Pt assessment complete. Pt has a student nurse caring for him this am. Pt reportedly had an episode of emesis this am. Pt states he does not feel well this am, does not want to take any pills this morning including antiemetics. Feels that his bp is too low and that is causing him to feel bad. Discussed BP trends with patient. Pt is going to attempt to eat, but does not want to take his Phoslo prior to eating. Lasix drip continues to infuse per orders. Barajas DD, not a lot UOP. Dr. Oconnor notified. No further needs at this time. Call light within reach.
[2021-04-02 11:29] VITALS: BP 138/63; PULSE 77; TEMP 98.2
--- NOTE | 2021-04-02 14:49 | NUR ---
Attempted to call report to [facility] at this time.
== END 2021-04-02 14:49 | disposition short-term general hospital (02) | DRG 638 ==
LOC: COL.ER 15:53 → SURG 18:30
PROVIDERS: Emergency Medicine; Internal Medicine; Student in an Organized Health Care Education/Training Program; ADMIT Internal Medicine
DX: E11.628 Type 2 diabetes mellitus with other skin complications (principal); I13.0 Hypertensive heart and chronic kidney disease with heart failure and stage 1 through stage 4 chronic kidney disease, or unspecified chronic kidney disease; E87.2 Acidosis; L03.116 Cellulitis of left lower limb; L97.829 Non-pressure chronic ulcer of other part of left lower leg with unspecified severity; D50.9 Iron deficiency anemia, unspecified; N18.4 Chronic kidney disease, stage 4 (severe); E11.42 Type 2 diabetes mellitus with diabetic polyneuropathy; E78.5 Hyperlipidemia, unspecified; E11.22 Type 2 diabetes mellitus with diabetic chronic kidney disease; E66.01 Morbid (severe) obesity due to excess calories; I50.9 Heart failure, unspecified; E87.6 Hypokalemia; D63.8 Anemia in other chronic diseases classified elsewhere; E11.622 Type 2 diabetes mellitus with other skin ulcer; Z20.822 Contact with and (suspected) exposure to COVID-19; Z86.73 Personal history of transient ischemic attack (TIA), and cerebral infarction without residual deficits; Z79.4 Long term (current) use of insulin; Z68.32 Body mass index [BMI] 32.0-32.9, adult; Z23 Encounter for immunization
CPT/HCPCS: 99223-AI; 99232-AI; 99239; A4314; J0696; J1205; J1644; J1815; J1940; J3370; J7050

== ENCOUNTER 2021-06-04 11:52 | Emergency (ER) | payer MEDICARE ==
[~2021-06-04] VITALS: Ht 200.7 cm; Wt 130.5 kg
[2021-06-04 12:00] VITALS: TEMP 98.9
[2021-06-04 12:31] LABS: BASO # 0.1 K/mm3 (0.0-0.2); BASO % 0.7 % (0.0-2.0); EOS # 0.5 K/mm3 (0.0-0.7); EOS % 5.4 % (0.0-4.0); GRAN # 7.1 K/mm3 (1.4-6.5); GRAN % 80.8 % (42.2-75.2); LYMPH # 0.6 K/mm3 (1.2-3.4); LYMPH % 6.9 % (20.0-51.0); MEAN CELL VOLUME 85 fl (80.0-100.0); MEAN CORPUSCULAR HGB CONC 32 g/dl (33.0-37.0); MEAN PLATELET VOLUME 9.8 fl (7.4-10.4); MONO # 0.5 K/mm3 (0.1-0.6); PLATELET COUNT 288 K/mm3 (130-400); REDCELL DISTRIBUTION WIDTH-CV 15.4 % (11.5-14.5)
[2021-06-04 12:36] LABS: HEMATOCRIT 27.1 % (42.0-52.0); HEMOGLOBIN 8.6 g/dl (13.5-18.0); MEAN CORPUSCULAR HEMOGLOBIN 27 pg (27-31)
[2021-06-04 12:50] LABS: ALBUMIN 3.4 gm/dL (3.4-4.8); BILIRUBIN,TOTAL 0.6 mg/dL (0.2-1.2); CREATININE, serum 4.64 mg/dL (0.72-1.25); POTASSIUM 3.4 mmol/L (3.5-4.5); TOTAL PROTEIN 6.8 gm/dL (6.2-8.1)
[2021-06-04] MEDS ORDERED: LIPITOR 40MG TA40 MG PO (12:55)
[2021-06-04] MEDS ORDERED: CARDIZEM 90MG T90 MG PO (12:56)
[2021-06-04] MEDS ORDERED: ATARAX50 MG PO (12:57)
[2021-06-04] MEDS ORDERED: LASIX 40MG TABL40 MG PO (12:57)
[2021-06-04] MEDS ORDERED: PROBIOTIC ACID1 EAC3 PO (12:58)
[2021-06-04] MEDS ORDERED: LANTUS SOLOS100 U/ML SQ (12:59)
[2021-06-04] MEDS ORDERED: TOPROL XL100 MG PO (13:00)
[2021-06-04] MEDS ORDERED: PLAVIX 75MG TAB75 MG PO (13:00)
[2021-06-04] MEDS ORDERED: COZAAR 25MG25 MG/TAB PO (13:00)
[2021-06-04 19:35] VITALS: BP 185/117; PULSE 72
== END 2021-06-04 19:35 | disposition short-term general hospital (02) ==
LOC: COL.ER 11:52
PROVIDERS: Emergency Medicine
DX: T82.7XXA Infection and inflammatory reaction due to other cardiac and vascular devices, implants and grafts, initial encounter (principal); D63.1 Anemia in chronic kidney disease; N18.9 Chronic kidney disease, unspecified; Z86.73 Personal history of transient ischemic attack (TIA), and cerebral infarction without residual deficits; Z98.890 Other specified postprocedural states

== ENCOUNTER → 2021-08-19 | Outpatient (CLI) | payer MEDICARE ==
[~2021-08-19] MED LIST changes: +ATARAX50 MG PO; +CARDIZEM 90MG T90 MG PO; +LASIX 40MG TABL40 MG PO; +LIPITOR 40MG TA40 MG PO; +PROBIOTIC ACID1 EAC3 PO; +TOPROL XL100 MG PO
== END ==
LOC: ZCOL.LAB 16:02
DX: E11.51 Type 2 diabetes mellitus with diabetic peripheral angiopathy without gangrene (principal)

== ENCOUNTER → 2021-08-21 | Outpatient (CLI) | payer MEDICARE ==
[2021-08-21 13:44] LABS: BASO # 0.1 K/mm3 (0.0-0.2); BASO % 0.9 % (0.0-2.0); EOS # 0.3 K/mm3 (0.0-0.7); EOS % 4.8 % (0.0-4.0); GRAN # 4.9 K/mm3 (1.4-6.5); GRAN % 75.8 % (42.2-75.2); HEMATOCRIT 30.6 % (42.0-52.0); HEMOGLOBIN 9.3 g/dl (13.5-18.0); LYMPH # 0.6 K/mm3 (1.2-3.4); MEAN CELL VOLUME 87 fl (80.0-100.0); MEAN CORPUSCULAR HEMOGLOBIN 26 pg (27-31); MEAN CORPUSCULAR HGB CONC 30 g/dl (33.0-37.0); MONO # 0.6 K/mm3 (0.1-0.6); MONO % 9.2 % (1.7-9.3); PLATELET COUNT 195 K/mm3 (130-400); RED BLOOD COUNT 3.52 M/mm3 (4.20-5.60); REDCELL DISTRIBUTION WIDTH-CV 16.3 % (11.5-14.5)
[2021-08-21 13:47] LABS: ALBUMIN 2.7 gm/dL (3.4-4.8); BILIRUBIN,TOTAL 0.5 mg/dL (0.2-1.2); CALCIUM 7.9 mg/dL (8.4-10.2); CREATININE, serum 4.67 mg/dL (0.72-1.25); POTASSIUM 4.3 mmol/L (3.5-4.5); TOTAL PROTEIN 5.5 gm/dL (6.2-8.1)
== END ==
LOC: ZCOL.LAB 12:54
PROVIDERS: Family Medicine
DX: I13.2 Hypertensive heart and chronic kidney disease with heart failure and with stage 5 chronic kidney disease, or end stage renal disease (principal); N18.5 Chronic kidney disease, stage 5; I50.9 Heart failure, unspecified

== ENCOUNTER → 2021-09-18 | Outpatient (CLI) | payer MEDICARE ==
[2021-09-18 15:09] LABS: HEMOGLOBIN 11.1 g/dl (13.5-18.0)
[2021-09-18 15:11] LABS: HEMATOCRIT 35.4 % (42.0-52.0)
[2021-09-18 15:22] LABS: ALBUMIN 3.1 gm/dL (3.4-4.8); CALCIUM 8.3 mg/dL (8.4-10.2); CREATININE, serum 5.31 mg/dL (0.72-1.25); PHOSPHOROUS 6.8 mg/dL (2.3-4.7); POTASSIUM 3.5 mmol/L (3.5-4.5)
== END ==
LOC: COL.LAB 14:37
PROVIDERS: Family Medicine
DX: I13.2 Hypertensive heart and chronic kidney disease with heart failure and with stage 5 chronic kidney disease, or end stage renal disease (principal); E55.9 Vitamin D deficiency, unspecified; I50.9 Heart failure, unspecified; N18.6 End stage renal disease; R60.9 Edema, unspecified

== ENCOUNTER → 2021-10-08 | Outpatient (CLI) | payer MEDICARE ==
[~2021-10-08] MED LIST changes: +ALDACTONE 25MG25 M1 PO; +CATAPRES0.3 MG PO; +FLOMAX 0.40.4 MG/CAP PO; +IRON TABLETS325 MG PO; +LASIX 80MG TABL80 MG PO; +LEXAPRO 10MG10 MG PO; +NORVASC2.5 MG PO; +PHOSLO667 MG PO; +PROCARDIA XL90 MG PO; +SODIUM BICARBO650 MG PO; +SYNTHROID0.05 MG/TA PO; +VITAMIN C500 MG PO
[2021-10-08 12:24] LABS: ALBUMIN 2.8 gm/dL (3.4-4.8); CALCIUM 7.6 mg/dL (8.4-10.2); CREATININE, serum 5.54 mg/dL (0.72-1.25); PHOSPHOROUS 6.4 mg/dL (2.3-4.7)
[2021-10-08 12:27] LABS: POTASSIUM 2.3 mmol/L (3.5-4.5)
== END ==
LOC: ZCOL.LAB 11:53
PROVIDERS: Internal Medicine Nephrology
DX: N18.4 Chronic kidney disease, stage 4 (severe) (principal)

== ENCOUNTER 2021-10-14 08:56 | Inpatient (IN) | payer MEDICARE, MEDICAID ==
[~2021-10-14] VITALS: Ht 200.7 cm; Wt 126.0 kg
[~2021-10-14 08:56] MED LIST changes: -ALDACTONE 25MG25 M1 PO; -CATAPRES0.3 MG PO; -FLOMAX 0.40.4 MG/CAP PO; -IRON TABLETS325 MG PO; -LASIX 80MG TABL80 MG PO; -LEXAPRO 10MG10 MG PO; -NORVASC2.5 MG PO; -PHOSLO667 MG PO; -PROCARDIA XL90 MG PO; -SODIUM BICARBO650 MG PO; -SYNTHROID0.05 MG/TA PO; -VITAMIN C500 MG PO
--- NOTE | 2021-10-14 11:02 | NUR ---
PT ARRIVED TO ROOM 314 VIA WC, LIFT UTILIZED FOR TRANSFER FROM CHAIR TO BED, WOUNDS NOTED TO BUTTOCKS,COCCYX REDNESS/SHEARING, LIGIA AREA REDDENED, GENERALIZED EDEMA, LUE FISTULA, RLE BKA WITH WOUND COVERED BY DRESSING RESTRICTED LIMB BRACELET APPLIED, FALL BRACELET APPLIED, PT HAD SMALL AMOUNT OF BM IN LIGIA AREA, LIGIA AREA CLEANED, JORGE POSADA WITH DR. CARLTON AT BEDSIDE
[2021-10-14 11:59] LABS: BASO # 0.1 K/mm3 (0.0-0.2); EOS # 0.3 K/mm3 (0.0-0.7); EOS % 3.6 % (0.0-4.0); GRAN # 5.7 K/mm3 (1.4-6.5); GRAN % 81.3 % (42.2-75.2); LYMPH # 0.5 K/mm3 (1.2-3.4); LYMPH % 6.6 % (20.0-51.0); MEAN CELL VOLUME 81 fl (80.0-100.0); MEAN CORPUSCULAR HEMOGLOBIN 27 pg (27-31); MEAN CORPUSCULAR HGB CONC 33 g/dl (33.0-37.0); MEAN PLATELET VOLUME 10.4 fl (7.4-10.4); MONO # 0.5 K/mm3 (0.1-0.6); MONO % 7.2 % (1.7-9.3); PLATELET COUNT 173 K/mm3 (130-400); RED BLOOD COUNT 4.11 M/mm3 (4.20-5.60); REDCELL DISTRIBUTION WIDTH-CV 16.3 % (11.5-14.5)
[2021-10-14 12:01] LABS: HEMATOCRIT 33.2 % (42.0-52.0)
[2021-10-14 12:06] LABS: ALBUMIN 2.8 gm/dL (3.4-4.8); BILIRUBIN,TOTAL 0.5 mg/dL (0.2-1.2); CALCIUM 7.7 mg/dL (8.4-10.2); CREATININE, serum 5.91 mg/dL (0.72-1.25); TOTAL PROTEIN 5.7 gm/dL (6.2-8.1)
[2021-10-14 12:09] LABS: POTASSIUM 2.2 mmol/L (3.5-4.5)
--- NOTE | 2021-10-14 12:20 | NUR ---
CRITICAL POTASSIUM 2.2, SALIMA HANEY NOTIFIED
[2021-10-14 12:51] LABS: INR 1.3 (0.8-3.0); PROTHROMBIN TIME 15.4 SECONDS (9.7-12.8)
[2021-10-14 13:38] VITALS: BP 187/90; PULSE 81; TEMP 97.7
--- NOTE | 2021-10-14 13:51 | NUR ---
See merge for all medication, assessment, intervention, and vital sign times.
[2021-10-14] MEDS ORDERED: NORVASC2.5 MG PO (14:44)
[2021-10-14] MEDS ORDERED: LIPITOR20 MG PO (14:45)
[2021-10-14] MEDS ORDERED: CATAPRES0.3 MG PO (14:46)
[2021-10-14] MEDS ORDERED: IRON TABLETS325 MG PO (14:47)
[2021-10-14] MEDS ORDERED: HYDRALAZINE HC100 MG PO (14:48)
[2021-10-14] MEDS ORDERED: LASIX 80MG TABL80 MG PO (14:48)
[2021-10-14] MEDS ORDERED: SYNTHROID0.05 MG/TA PO (14:50)
[2021-10-14] MEDS ORDERED: LEXAPRO 10MG10 MG PO (14:51)
[2021-10-14] MEDS ORDERED: COZAAR 50MG50 MG/TAB PO (14:51)
[2021-10-14] MEDS ORDERED: PROCARDIA XL90 MG PO (14:52)
[2021-10-14] MEDS ORDERED: PHOSLO667 MG PO (14:53)
[2021-10-14] MEDS ORDERED: SODIUM BICARBO650 MG PO (14:53)
[2021-10-14] MEDS ORDERED: FLOMAX 0.40.4 MG/CAP PO (14:54)
[2021-10-14] MEDS ORDERED: VITAMIN C500 MG PO (14:54)
[2021-10-14] MEDS ORDERED: LOPRESSOR 225 MG/TAB PO (14:58)
[2021-10-14] MEDS ORDERED: TYLENOL 325MG325 MG PO (14:59)
--- NOTE | 2021-10-14 17:05 | NUR ---
PT'S POST PROCEDURE VS TAKEN BY TUTORING CLINICIAN
[2021-10-14 17:53] VITALS: BP 186/100; PULSE 80; TEMP 98
--- NOTE | 2021-10-14 18:34 | NUR ---
PT'S BP ELEVATED, BRANDT PAGED X 2, NO RETURN PHONE CALL, HYDRALAZINE GIVEN PER ORDER
[2021-10-14 19:44] VITALS: BP 198/92; PULSE 81; TEMP 97.5
[2021-10-14 21:18] LABS: HEPATITIS B SURFACE ANTIBODY <2.0 (()); HEPATITIS B SURFACE ANTIGEN Negative (Negative); HEPATITIS C VIRUS ANTIBODY Negative (Negative)
[2021-10-14 23:08] VITALS: BP 188/96; PULSE 89; TEMP 98.3
[2021-10-15] VITALS (7 sets, daily range): BP systolic 112–196; BP diastolic 79–103; PULSE 62–99; TEMP 97.6–101.2
--- NOTE | 2021-10-15 05:55 | NUR ---
SHIFT SUMMARY: PATIENT RESTED QUIETLY THIS SHIFT. PATIENT HAD BEDTIME SNACK. PATIENT HAD NO COMPLAINTS OF PAIN AND RECEIVED ONE DOSE OF PRN HYDRALAZINE FOR ELEVATED BLOOD PRESSURE. HYDRALAZINE WAS EFFECTIVE.
[2021-10-15 08:57] LABS: BASO # 0.1 K/mm3 (0.0-0.2); BASO % 0.7 % (0.0-2.0); EOS # 0.2 K/mm3 (0.0-0.7); EOS % 2.6 % (0.0-4.0); GRAN % 82.1 % (42.2-75.2); LYMPH # 0.5 K/mm3 (1.2-3.4); LYMPH % 6.4 % (20.0-51.0); MEAN CELL VOLUME 80 fl (80.0-100.0); MEAN CORPUSCULAR HGB CONC 33 g/dl (33.0-37.0); MEAN PLATELET VOLUME 9.8 fl (7.4-10.4); MONO # 0.6 K/mm3 (0.1-0.6); MONO % 7.9 % (1.7-9.3); PLATELET COUNT 131 K/mm3 (130-400); RED BLOOD COUNT 3.63 M/mm3 (4.20-5.60); REDCELL DISTRIBUTION WIDTH-CV 16.4 % (11.5-14.5)
[2021-10-15 08:58] LABS: HEMOGLOBIN 9.7 g/dl (13.5-18.0); MEAN CORPUSCULAR HEMOGLOBIN 27 pg (27-31)
[2021-10-15 09:32] LABS: CREATININE, serum 4.81 mg/dL (0.72-1.25)
[2021-10-15 09:33] LABS: ALBUMIN 2.5 gm/dL (3.4-4.8); CALCIUM 7.5 mg/dL (8.4-10.2)
--- NOTE | 2021-10-15 13:43 | NUR ---
Flower Cheniller met with patient to discuss discharge planning. Patient lives at [facility] and is here for dialysis initiation. Patient sees Dr. Buchanan for primary care and has medications administered to him by staff at [facility]. Patient is total care and requires a lift for transfers. Patient does not have DPOA. SW asked patient if he would like to designate anyone and patient stated "he doesn't have any of that". Patient plans to return to [facility] at time of discharge. GENNARO Rosales will provide chair time. CAMPOS contacted Arlen at [facility] and faxed clinical updates. SW also confirmed they do not have DPOA-HC on file. Discharge Plan: [facility]
--- NOTE | 2021-10-15 15:00 | NUR ---
CALLED JORGE RE: PTS K+ IT IS NOW AT 2.4, ORDERS GIVEN, REDRAW IN THE AM
--- NOTE | 2021-10-16 00:16 | NUR ---
PATIENT RESTING IN BED QUIETLY. PATIENT HAVING PAIN IN LEG BUT REFUSING TO TAKE ANYTHING FOR IT. PATIENT NOTED TO HAVE TEMPERATURE OF 101.[address] CARLTON NOTIFIED AND RECEIVED ORDER FOR BLOOD CULTURE X1. PATIENT GIVEN PRN TYLENOL AND ZOFRAN DUE TO NAUSEA WELL.
[2021-10-16 01:32] LABS: COLLECTION METHOD CLEAN CATCH
[2021-10-16 01:44] LABS: PH 5.5 (5.0-8.5); SQUAMOUS EPITHELIAL None Seen /hpf (0-10); URINE APPEARANCE Clear (CLEAR/HAZY); URINE BACTERIA None Seen /hpf (NONE SEEN); URINE BLOOD 1+ (NEGATIVE); URINE COLOR Yellow (YELLOW); URINE GLUCOSE Negative (NEGATIVE); URINE KETONE Negative (NEGATIVE); URINE NITRATE Negative (NEGATIVE); URINE PROTEIN(semi-quant) 3+ (NEGATIVE); URINE RBC 0-2 /hpf (0-2); URINE UROBILINOGEN 0.2 E.U/dL (0.2-1.0)
[2021-10-16 03:44] VITALS: BP 152/71; PULSE 80; TEMP 101.7
--- NOTE | 2021-10-16 05:50 | NUR ---
PATIENT RESTED QUIETLY THIS SHIFT. PATIENT FEVER 101.7 AT 4 AM VITALS. PATIENT RESISTIVE TO TAKING TYLENOL BOTH TIMES HE REQUIRED IT FOR FEVER REDUCTION. EDUCATION PROVIDED AND PATIENT TOOK MEDICATION.
[2021-10-16 06:52] LABS: ALBUMIN 2.5 gm/dL (3.4-4.8); ALKALINE PHOSPHATASE 55 U/L (40-150); ANION GAP 11 mmol/L (7-16); AST,SGOT 11 U/L (5-34); BILIRUBIN,TOTAL 0.5 mg/dL (0.2-1.2); BLOOD UREA NITROGEN 47 mg/dL (8-26); CARBON DIOXIDE 21 mmol/L (23-31); CHLORIDE 109 mmol/L (98-107); CREATININE, serum 4.46 mg/dL (0.72-1.25); GLUCOSE 73 mg/dL (70-99); SODIUM 141 mmol/L (136-145); TOTAL PROTEIN 5.2 gm/dL (6.2-8.1)
[2021-10-16 06:55] LABS: ALANINE AMINOTRANSFERASE < 6 U/L (0-55)
[2021-10-16 07:03] LABS: MEAN CELL VOLUME 80 fl (80.0-100.0); MEAN CORPUSCULAR HGB CONC 34 g/dl (33.0-37.0); MEAN PLATELET VOLUME 10.3 fl (7.4-10.4); PLATELET COUNT 108 K/mm3 (130-400); RED BLOOD COUNT 3.65 M/mm3 (4.20-5.60); REDCELL DISTRIBUTION WIDTH-CV 16.3 % (11.5-14.5)
[2021-10-16 07:08] LABS: HEMOGLOBIN 9.8 g/dl (13.5-18.0); MEAN CORPUSCULAR HEMOGLOBIN 27 pg (27-31)
--- NOTE | 2021-10-16 07:12 | NUR ---
MELISSA Chavarria notified of critical potassium of 2.0. New orders received and initiated.
[2021-10-16 07:24] VITALS: BP 157/78; PULSE 78; TEMP 99
[2021-10-16 07:50] LABS: BAND 10 % (0-10); LYMPHOCYTE 5 % (20.0-51.0); NEUTROPHILS 83 % (42.0-75.2); OVALOCYTES 1+; PLATELET ESTIMATE NORMAL (NORMAL); TEAR DROP CELLS 1+
--- NOTE | 2021-10-16 09:00 | NUR ---
Assessment complete. A&Ox4. Denies nausea/shortness of breath. Rating pain 4/10 to left lower extremity. States he does not take pain medications and does not want any at this time. Left upper extremity with +3 edema. Flaccid to left side. Noted to have a right BKA with blisters to stump that are Draining clear liquid. Left lower extremity +3 edema. Right thigh/stump +2 edema. TELE reporting SR. Right chest tunneled HD cath with CDI dressing. Plan of care discussed for this shift to include meds, dialysis, potassium replacement and calling for questions/concerns. Verbalizes understanding. Call light in reach. Will monitor.
--- NOTE | 2021-10-16 11:00 | NUR ---
Orders clarified with MELISSA Chavarria about Bumex order and when to give. States to give bumex after dilaysis as well as the vanco.
--- NOTE | 2021-10-16 11:17 | NUR ---
Computer Hardware Engineer spoke with GENNARO Rosales who advised patient is a possible discharge tomorrow. SW contacted Arlen at [facility] to provide update. SW also faxed clinical updates.
--- NOTE | 2021-10-16 11:49 | NUR ---
Patient to dialysis at this time via bed.
--- NOTE | 2021-10-16 13:47 | NUR ---
Spoke with GENNARO Chavarria about critical potassium of 2.6 and 40meq due per protocol. Patient is on a fluid restriction as well. New orders received to switch to tablets.
--- NOTE | 2021-10-16 15:20 | NUR ---
Patient back from dialysis. Has been incontinent of both bowel and bladder. Jennifer care completed. Noted to have a stage II ulcer to coccyx. Mepilex applied. Post dialysis meds given. Repositioned in bed with pillow support.
[2021-10-16 15:55] VITALS: BP 154/98; PULSE 68; TEMP 98.5
[2021-10-16 20:04] VITALS: BP 168/77; PULSE 91; TEMP 99.5
[2021-10-16 23:23] VITALS: BP 160/77; PULSE 78; TEMP 98.6
--- NOTE | 2021-10-17 04:30 | NUR ---
ASSESSMENT COMPLETE FOR ADJUNCT PHYSICS INSTRUCTOR. PT RESTING IN BED WATCHING TV. PT COMPLAINED OF "BOTTOM" PAIN. PT GIVEN TYLENOL FOR PAIN AND FEVER (PT HAD A LOW GRADE TEMP OF 99.5). TYLENOL WAS EFFECTIVE FOR PT'S PAIN AND FEVER. PT DENIED CHEST PAIN, PALPITATIONS, SOB, N,V,D OR DIZZINESS AT THIS TIME. POTASSIUM REPLACED PER PROTOCOL. WILL CONTINUE TO MONITOR. PT EXPRESSED NO ADDITIONAL NEEDS AT THIS TIME. CALL LIGHT WITHIN REACH.
[2021-10-17 04:33] VITALS: BP 155/88; PULSE 87; TEMP 97.7
[2021-10-17 07:26] VITALS: BP 150/75; PULSE 83; TEMP 98.7
--- NOTE | 2021-10-17 08:00 | NUR ---
Patient sitting up in bed, A&Ox4. VSS. IV CDI. IV CDI. RT stump dressing CDI, elevated on pillow. Contact precautions in place. Denies pain and discomfort. Call light within reach
[2021-10-17 09:02] LABS: ALBUMIN 2.5 gm/dL (3.4-4.8); ALKALINE PHOSPHATASE 55 U/L (40-150); ANION GAP 12 mmol/L (7-16); AST,SGOT 10 U/L (5-34); BILIRUBIN,TOTAL 0.5 mg/dL (0.2-1.2); BLOOD UREA NITROGEN 35 mg/dL (8-26); CALCIUM 8.3 mg/dL (8.4-10.2); CARBON DIOXIDE 22 mmol/L (23-31); CHLORIDE 105 mmol/L (98-107); CREATININE, serum 3.69 mg/dL (0.72-1.25); GLUCOSE 131 mg/dL (70-99); SODIUM 139 mmol/L (136-145); TOTAL PROTEIN 5.6 gm/dL (6.2-8.1)
[2021-10-17 09:07] LABS: ALANINE AMINOTRANSFERASE < 6 U/L (0-55); POTASSIUM 2.7 mmol/L (3.5-4.5)
[2021-10-17 11:00] LABS: BASO % 0.3 % (0.0-2.0); EOS # 0.1 K/mm3 (0.0-0.7); EOS % 0.9 % (0.0-4.0); GRAN # 9.9 K/mm3 (1.4-6.5); GRAN % 88.6 % (42.2-75.2); LYMPH # 0.5 K/mm3 (1.2-3.4); LYMPH % 4.4 % (20.0-51.0); MEAN CELL VOLUME 82 fl (80.0-100.0); MEAN CORPUSCULAR HEMOGLOBIN 27 pg (27-31); MEAN CORPUSCULAR HGB CONC 33 g/dl (33.0-37.0); MEAN PLATELET VOLUME 11.3 fl (7.4-10.4); MONO # 0.6 K/mm3 (0.1-0.6); MONO % 5.4 % (1.7-9.3); PLATELET COUNT 123 K/mm3 (130-400); REDCELL DISTRIBUTION WIDTH-CV 16.7 % (11.5-14.5)
[2021-10-17] MEDS ORDERED: APRESOLINE 25MG25 MG PO (11:06)
[2021-10-17 11:07] LABS: HEMATOCRIT 30.3 % (42.0-52.0)
[2021-10-17 12:00] VITALS: BP 163/78; PULSE 86; TEMP 98.5
--- NOTE | 2021-10-17 13:58 | NUR ---
RT stump dressing changed. Yellow drainage on dressing. RT stump elevated on pillow. Call light within reach
--- NOTE | 2021-10-17 15:45 | NUR ---
Wood Grinder collaborated with GENNARO Rosales who advised patient is ready for discharge. CAMPOS contacted Arlen with [facility] who advised upon further review, the chair time for patient will not work as they do not have transportation available after 1600. CAMPOS updated GENNARO Rosales. CAMPOS later received a call from CAMPOS [place] at [facility] who worked with [facility] to find a resolution. [facility] will take patient to dialysis, then Ap[facility]onia has set up return transport to [facility] utilizing Medicaid transportation. [facility] was unable to take patient to dialysis today and advised CAMPOS that they cannot accept admissions over the weekend. Discharge Plan: [facility] Wednesday
[2021-10-17 16:03] VITALS: BP 163/93; PULSE 96; TEMP 98
--- NOTE | 2021-10-17 17:39 | NUR ---
Patient provided a bed bath and repositioned in bed on left side. External catheter placed, patient yelling out requesting it to be removed because it hurt. Urinal at the bedside. Bumex GTT 5ml/hr, IV CDI. RT leg elevated on pillow. Patient on FR, but not wanting to comply, threatening to call "the boss". Nursing staff educating the patient on his 1500 FR. Call light within reach. Bed alarm on
[2021-10-17 19:53] VITALS: BP 158/82; PULSE 93; TEMP 99.5
[2021-10-18 00:03] VITALS: BP 144/85; PULSE 87; TEMP 97.5
[2021-10-18 04:22] VITALS: BP 158/80; PULSE 86; TEMP 97.9
[2021-10-18 06:38] LABS: BASO % 0.3 % (0.0-2.0); EOS # 0.2 K/mm3 (0.0-0.7); EOS % 1.6 % (0.0-4.0); GRAN # 10.1 K/mm3 (1.4-6.5); GRAN % 87.6 % (42.2-75.2); HEMOGLOBIN 10.1 g/dl (13.5-18.0); LYMPH # 0.6 K/mm3 (1.2-3.4); MEAN CELL VOLUME 83 fl (80.0-100.0); MEAN CORPUSCULAR HEMOGLOBIN 27 pg (27-31); MEAN CORPUSCULAR HGB CONC 33 g/dl (33.0-37.0); MEAN PLATELET VOLUME 11.2 fl (7.4-10.4); MONO # 0.6 K/mm3 (0.1-0.6); PLATELET COUNT 146 K/mm3 (130-400); RED BLOOD COUNT 3.71 M/mm3 (4.20-5.60); REDCELL DISTRIBUTION WIDTH-CV 16.4 % (11.5-14.5)
[2021-10-18 07:01] LABS: ALBUMIN 2.4 gm/dL (3.4-4.8); CALCIUM 8.5 mg/dL (8.4-10.2); CREATININE, serum 4.04 mg/dL (0.72-1.25); PHOSPHOROUS 2.9 mg/dL (2.3-4.7)
[2021-10-18 07:03] LABS: POTASSIUM 2.7 mmol/L (3.5-4.5)
[2021-10-18 07:05] LABS: HEMATOCRIT 30.8 % (42.0-52.0)
[2021-10-18 07:36] VITALS: BP 163/94; PULSE 95; TEMP 98.1
--- NOTE | 2021-10-18 09:29 | NUR ---
SHIFT ASSESSMENT PERFORMED AND MORNING MEDICATIONS ADMINISTERED. EDEMA NOTED TO LEFT ARM AND LEFT LEG. LEFT LEG ALSO REDDENED. VSS. PT ASKING FOR MORE FLUIDS, REEDUCATED ON FLUID RESTRICITON. CALL LIGHT WITHIN REACH.
--- NOTE | 2021-10-18 12:29 | NUR ---
Kiln Head House Operator rounds: Kiln Head House Operator visit attempted. RN explained that Patient was going to dialysis so computer systems analyst visit was not completed.
[2021-10-18 16:01] VITALS: BP 166/78; PULSE 87; TEMP 98.4
--- NOTE | 2021-10-18 17:37 | NUR ---
PT CURRENTLY SITTING UP IN BED, A&O X3. HAD DIALYSIS AND TOLERATED WELL. COMPLAINTS OF FLUID RESTRICTION. NURSING STAFF EDUCATING NEEDED. REPORTS GENERALIZED PAIN WITH MOVEMENT. NO OTHER REQUESTS AT THIS TIME.
--- NOTE | 2021-10-18 19:40 | NUR ---
PATIENT IS SITTING IN BED AT MORE THAN 45 DEGREE ANGLE. PATIENT STATES HE HAS AN ITCH THAT HE JUST CAN SCRATCH AND NEEDS THIS NURSE PLUS ANOTHER TO PULL HIM FORWARD AND SCRATCH. THIS NURSE REQUESTS ELENA PCT TO ASSIST. PATIENT ITCH IS SCRATCHED AND PATIENT STATES SATISFACTION. PATIENT IS WATCHING TV WITH CALL LIGHT WITHIN HIS HAND. PATIENT DENIES ANY FURTHER QUESTIONS OR CONCERNS BUT IS ENCOURAGED BY THIS NURSE TO USE HIS CALL LIGHT WITH NEEDS. PATIENT STATES UNDERSTANDING.
[2021-10-18 19:46] VITALS: BP 163/79; PULSE 90; TEMP 97.9
[2021-10-19 00:04] VITALS: BP 167/89; PULSE 73; TEMP 97.9
[2021-10-19 04:42] VITALS: BP 170/87; PULSE 92; TEMP 98.2
[2021-10-19 06:30] LABS: BASO # 0.1 K/mm3 (0.0-0.2); BASO % 0.5 % (0.0-2.0); EOS # 0.3 K/mm3 (0.0-0.7); EOS % 2.4 % (0.0-4.0); GRAN # 9.3 K/mm3 (1.4-6.5); GRAN % 84.4 % (42.2-75.2); HEMOGLOBIN 10.9 g/dl (13.5-18.0); LYMPH # 0.6 K/mm3 (1.2-3.4); LYMPH % 5.2 % (20.0-51.0); MEAN CELL VOLUME 82 fl (80.0-100.0); MEAN CORPUSCULAR HEMOGLOBIN 26 pg (27-31); MEAN CORPUSCULAR HGB CONC 32 g/dl (33.0-37.0); MEAN PLATELET VOLUME 11.4 fl (7.4-10.4); MONO # 0.8 K/mm3 (0.1-0.6); PLATELET COUNT 186 K/mm3 (130-400); RED BLOOD COUNT 4.14 M/mm3 (4.20-5.60); REDCELL DISTRIBUTION WIDTH-CV 16.2 % (11.5-14.5)
[2021-10-19 06:44] LABS: ALBUMIN 2.4 gm/dL (3.4-4.8); CALCIUM 8.7 mg/dL (8.4-10.2); CREATININE, serum 3.14 mg/dL (0.72-1.25); PHOSPHOROUS 2.5 mg/dL (2.3-4.7)
[2021-10-19 06:51] LABS: POTASSIUM 2.8 mmol/L (3.5-4.5)
[2021-10-19 07:28] VITALS: BP 153/97; PULSE 94; TEMP 98.2
--- NOTE | 2021-10-19 08:00 | NUR ---
PT ALERT AND ORIENTED. REPOSITIONED FOR COMFORT, STUMP ELEVATED ON PILLOW. . IV ON RIGHT FOREARM FREE OF EDEMA. VSS. DENIES PAIN AND DISCOMFORT. CONTACT PRECAUTIONS IN PLACE. CALL LIGHT WITHIN REACH.
[2021-10-19 11:27] VITALS: BP 170/101; PULSE 50; TEMP 98.4
--- NOTE | 2021-10-19 13:25 | NUR ---
Irina DAIGLE requests follow up to [facility] to identify if patient has a sling at their facility for a Michael lift, and if so can it be brought to the hospital for his discharge tomorrow. Operations And Maintenance Technician contacted [facility] ; Renae DAIGLE informs per DON patient arrived with a sling with his wheelchair to this hospital. rack worker contacted Irina DAIGLE and updated. *Discharge plan: Patient will return to [facility]*
[2021-10-19 15:50] VITALS: BP 156/98; PULSE 95; TEMP 98.1
--- NOTE | 2021-10-19 17:53 | NUR ---
PT A&O. VSS. PT DENIES PAIN. REPOSITIONED FOR COMFORT. PT HAD THREE LOOSE BOWEL MOVEMENTS AND COMPLAINTS ABOUT FLUID RESTRICTION, DOCTOR AWARE. IV CLEAN AND INTACT. CONTACT PRECAUTIONS IN PLACE. RIGHT LEG ELEVATED ON PILLOW. CALL LIGHT WITHIN REACH.
--- NOTE | 2021-10-19 19:11 | NUR ---
PATIENT IS SITTING IN BED WATCHING TELEVISION AND EATING HIS SANDWICH. PATIENT DENIES PAIN, NEEDS OR CONCERNS. THIS NURSE NOTES CALL LIGHT IS IN PATIENT LAP. PATIENT ENCOURAGED TO USE WITH ANY NEEDS OR CONCERNS. PATIENT REQUESTS THIS NURSE COME BACK AFTER HE IS FINISHED EATING. THIS NURSE COMPLIED WITH REQUEST.
[2021-10-19 20:23] VITALS: BP 156/93; PULSE 95; TEMP 98.5
[2021-10-20 00:50] VITALS: BP 170/91; PULSE 87; TEMP 97.9
[2021-10-20 04:28] VITALS: BP 180/94; PULSE 94; TEMP 97.9
[2021-10-20 06:47] LABS: BASO % 0.4 % (0.0-2.0); EOS # 0.3 K/mm3 (0.0-0.7); EOS % 3.1 % (0.0-4.0); GRAN # 9.1 K/mm3 (1.4-6.5); GRAN % 82.2 % (42.2-75.2); HEMOGLOBIN 10.8 g/dl (13.5-18.0); LYMPH # 0.6 K/mm3 (1.2-3.4); LYMPH % 5.5 % (20.0-51.0); MEAN CELL VOLUME 85 fl (80.0-100.0); MEAN CORPUSCULAR HEMOGLOBIN 27 pg (27-31); MEAN CORPUSCULAR HGB CONC 32 g/dl (33.0-37.0); MEAN PLATELET VOLUME 10.5 fl (7.4-10.4); MONO # 0.9 K/mm3 (0.1-0.6); MONO % 8.4 % (1.7-9.3); PLATELET COUNT 217 K/mm3 (130-400); RED BLOOD COUNT 3.94 M/mm3 (4.20-5.60); REDCELL DISTRIBUTION WIDTH-CV 15.8 % (11.5-14.5)
[2021-10-20 06:48] LABS: ALBUMIN 2.2 gm/dL (3.4-4.8); CALCIUM 8.5 mg/dL (8.4-10.2); CREATININE, serum 3.51 mg/dL (0.72-1.25); PHOSPHOROUS 2.7 mg/dL (2.3-4.7)
[2021-10-20 07:07] LABS: HEMATOCRIT 33.6 % (42.0-52.0)
[2021-10-20 07:21] LABS: POTASSIUM 2.5 mmol/L (3.5-4.5)
[2021-10-20 07:44] VITALS: BP 176/98; PULSE 92; TEMP 98.5
[2021-10-20] MEDS ORDERED: CATAPRES0.3 MG PO (10:00)
[2021-10-20] MEDS ORDERED: ALDACTONE 25MG25 M1 PO (10:00)
[2021-10-20] MEDS ORDERED: COZAAR100 MG PO (10:00)
[2021-10-20 11:45] VITALS: BP 172/127; PULSE 91; TEMP 98.2
--- NOTE | 2021-10-20 12:52 | NUR ---
Lens Inserter spoke with Arlen at [facility] about discharge today. Arlen was notified that [facility] will be responsible for transportation to dialysis appointments and that Apolonia Lens Inserter at [facility] arranged for Medicaid transport to provide rides back to [facility] in the evenings. Patient will discharge today and [facility] will take him to his outpatient dialysis appointment this afternoon at 1445. CAMPOS faxed discharge orders and covid results to Arlen at [facility]. CAMPOS confirmed with RN that patient's sling is with him in his room. Discharge Plan: [facility]
--- NOTE | 2021-10-20 14:10 | NUR ---
Patient discharged back to [facility]. INT to right forearm DCd-cath intact. DIscharge packet sent with transporter. Report called to [facility] Nursing Staff. Escorted off milligan in wheelchair with transporter in stable condition.
[2021-10-28] MEDS ORDERED: ATIVAN 0.50.5 MG/TAB PO (13:04)
[2021-10-28] MEDS ORDERED: CATAPRES0.3 MG PO (13:11)
[2021-10-28] MEDS ORDERED: APRESOLINE 25MG25 MG PO (13:13)
[2021-10-28] MEDS ORDERED: COZAAR100 MG PO (13:14)
[2021-10-28] MEDS ORDERED: ALDACTONE 25MG25 M1 PO (13:15)
== END 2021-10-20 14:10 | DRG 291 ==
LOC: MEDICAL 08:56
PROVIDERS: Nurse Practitioner; Registered Nurse; ADMIT Internal Medicine Nephrology
PROC: 5A1D70Z Performance of Urinary Filtration, Intermittent, Less than 6 Hours Per Day (ICD-10-PCS; principal; 2021-10-14)
PROC: 0JH63XZ Insertion of Tunneled Vascular Access Device into Chest Subcutaneous Tissue and Fascia, Percutaneous Approach (ICD-10-PCS; 2021-10-14)
PROC: 02H633Z Insertion of Infusion Device into Right Atrium, Percutaneous Approach (ICD-10-PCS; 2021-10-14)
PROC: B5181ZA Fluoroscopy of Superior Vena Cava using Low Osmolar Contrast, Guidance (ICD-10-PCS; 2021-10-14)
DX: I13.2 Hypertensive heart and chronic kidney disease with heart failure and with stage 5 chronic kidney disease, or end stage renal disease (principal); N18.6 End stage renal disease; E87.2 Acidosis; I50.9 Heart failure, unspecified; E11.22 Type 2 diabetes mellitus with diabetic chronic kidney disease; E87.6 Hypokalemia; D63.1 Anemia in chronic kidney disease; R50.9 Fever, unspecified; Z20.822 Contact with and (suspected) exposure to COVID-19; E83.39 Other disorders of phosphorus metabolism; E87.5 Hyperkalemia; E11.42 Type 2 diabetes mellitus with diabetic polyneuropathy; E66.01 Morbid (severe) obesity due to excess calories; Z79.84 Long term (current) use of oral hypoglycemic drugs; Z99.2 Dependence on renal dialysis; Z68.33 Body mass index [BMI] 33.0-33.9, adult
CPT/HCPCS: C1751; J0690; J1644; J1815; J2250; J2405; J3010; J3370; J3480; J7050

== ENCOUNTER → 2022-03-06 | Outpatient (CLI) | payer MEDICARE, MEDICAID ==
[~2022-03-06] MED LIST changes: +ALDACTONE 25MG25 M1 PO; +ATIVAN 0.50.5 MG/TAB PO; +CATAPRES0.3 MG PO; +CHLORASEPTIC 1180 M3 MM; +FLOMAX 0.40.4 MG/CAP PO; +IRON TABLETS325 MG PO; +LASIX 80MG TABL80 MG PO; +LEXAPRO 10MG10 MG PO; +NORVASC2.5 MG PO; +PHOSLO667 MG PO; +PROBIOTIC GOLD1 EACH PO; +PROCARDIA XL 3030 MG PO; +SODIUM BICARBO650 MG PO; +SYNTHROID0.05 MG/TA PO; +TRENTAL 400MG400 MG PO; +VITAMIN C500 MG PO
[2022-03-06 17:57] LABS: BASO # 0.1 K/mm3 (0.0-0.2); BASO % 0.9 % (0.0-2.0); EOS # 0.4 K/mm3 (0.0-0.7); EOS % 4.4 % (0.0-4.0); GRAN # 5.3 K/mm3 (1.4-6.5); GRAN % 66.6 % (42.2-75.2); LYMPH # 1.4 K/mm3 (1.2-3.4); LYMPH % 17.9 % (20.0-51.0); MEAN CELL VOLUME 86 fl (80.0-100.0); MEAN CORPUSCULAR HEMOGLOBIN 29 pg (27-31); MEAN CORPUSCULAR HGB CONC 34 g/dl (33.0-37.0); MEAN PLATELET VOLUME 9.4 fl (7.4-10.4); MONO # 0.8 K/mm3 (0.1-0.6); MONO % 9.6 % (1.7-9.3); PLATELET COUNT 276 K/mm3 (130-400); RED BLOOD COUNT 4.13 M/mm3 (4.20-5.60); REDCELL DISTRIBUTION WIDTH-CV 13.5 % (11.5-14.5)
[2022-03-06 18:04] LABS: HEMATOCRIT 35.7 % (42.0-52.0)
[2022-03-06 18:17] LABS: ALBUMIN 3.5 gm/dL (3.4-4.8); BILIRUBIN,TOTAL 0.5 mg/dL (0.2-1.2); CALCIUM 9.9 mg/dL (8.4-10.2); CREATININE, serum 2.3 mg/dL (0.72-1.25); POTASSIUM 3.3 mmol/L (3.5-4.5); TOTAL PROTEIN 8.2 gm/dL (6.2-8.1)
== END ==
LOC: COL.LAB 17:02
PROVIDERS: Family Medicine
DX: Z01.89 Encounter for other specified special examinations (principal)

== ENCOUNTER 2022-03-12 13:06 | Inpatient (IN) | payer MEDICARE, MEDICAID ==
[~2022-03-12] VITALS: Ht 200.7 cm; Wt 107.1 kg
[~2022-03-12 13:06] MED LIST changes: -CHLORASEPTIC 1180 M3 MM
[2022-03-12 13:59] LABS: HEMOGLOBIN 11.4 g/dl (13.5-18.0); MEAN CELL VOLUME 83 fl (80.0-100.0); MEAN CORPUSCULAR HEMOGLOBIN 29 pg (27-31); MEAN CORPUSCULAR HGB CONC 35 g/dl (33.0-37.0); PLATELET COUNT 204 K/mm3 (130-400); RED BLOOD COUNT 3.93 M/mm3 (4.20-5.60); REDCELL DISTRIBUTION WIDTH-CV 13.2 % (11.5-14.5)
[2022-03-12 14:02] LABS: HEMATOCRIT 32.5 % (42.0-52.0)
[2022-03-12 14:16] LABS: ALBUMIN 2.7 gm/dL (3.4-4.8); BILIRUBIN,TOTAL 0.4 mg/dL (0.2-1.2); C-REACTIVE PROTEIN 6.03 mg/dL (0.00-0.50); CALCIUM 8.7 mg/dL (8.4-10.2); CREATININE, serum 7.26 mg/dL (0.72-1.25); POTASSIUM 3.3 mmol/L (3.5-4.5)
[2022-03-12 15:03] LABS: BAND 8 % (0-10); LYMPHOCYTE 1 % (20.0-51.0); METAMYELOCYTE 1 % (0-0); NEUTROPHILS 86 % (42.0-75.2); PLATELET ESTIMATE NORMAL (NORMAL)
[2022-03-12 15:20] LABS: PH 5.5 (5.0-8.5); URINE APPEARANCE Cloudy (CLEAR/HAZY); URINE COLOR Yellow (YELLOW); URINE GLUCOSE Negative (NEGATIVE); URINE KETONE Negative (NEGATIVE); URINE PROTEIN(semi-quant) 3+ (NEGATIVE); URINE UROBILINOGEN 0.2 E.U/dL (0.2-1.0)
[2022-03-12 15:21] LABS: URINE BLOOD 2+ (NEGATIVE); URINE NITRATE Negative (NEGATIVE)
[2022-03-12 15:26] LABS: SQUAMOUS EPITHELIAL None Seen /hpf (0-10); URINE BACTERIA Many /hpf (NONE SEEN)
--- NOTE | 2022-03-12 18:31 | NUR ---
Patient arrived to the unit by bed, drowsy and sweting. BG was taken 35. Patient is awake, 2 cups of orange juice provided. A dose of oral glucose gel provided. Provider contacted, orders in place for hypoglycemic, continue monitoring. A dose of iv is going to be given.
[2022-03-12 18:35] VITALS: BP 151/74; PULSE 88; TEMP 98.2
--- NOTE | 2022-03-12 19:03 | NUR ---
Patient BG 81. Patient is awake but still drowsy and thirsty. Dialysis cath in the right chest is bleeding. Pt arrived with gown dirty in blood and sweaty.
--- NOTE | 2022-03-12 19:44 | NUR ---
Report given to night RN.
[2022-03-12 20:24] VITALS: BP 107/66; PULSE 76; TEMP 97.8
[2022-03-12] MEDS ORDERED: CHLORASEPTIC 1180 M3 MM (23:46)
[2022-03-12 23:52] VITALS: BP 103/57; PULSE 67; TEMP 97.5
[2022-03-13] VITALS (23 sets, daily range): BP systolic 74–108; BP diastolic 43–88; PULSE 92–136; TEMP 97.6–98.2
--- NOTE | 2022-03-13 05:11 | NUR ---
At approximately 0409 patient's BP was 74/52, HR 120-130s. Rechecked with result of 78/59. Primary nurse called Dr. Vo and notified of VS around 0420. This nurse assisted with assessment of patient. BP verfied with result of 78/59 at 0415. HOB was elevated 90 degrees at that time. HOB lowered. BS checked with a result of 112 at 0420. HR 130s. Ordered EKG. ticket sales supervisor updated on patient at 0423. BP rechecked at 0425: 91/56. EKG result sinus tachycardia, HR 132 at 0428. Primary care nurse called to update Dr. Vo of assessment at 0435, and had requested that this nurse call him. This nurse called Dr. Vo at 0440 and updated on assessment of patient. New order for 500 ml NS bolus to run over 2 hours. If BP does not improve, will need to transfer for ICU. BP at 0452 94/63. NS bolus started at that time. Primary nurse and datawarehouse developer both aware of all assessment findings and orders.
[2022-03-13 06:24] LABS: HEMOGLOBIN 10.3 g/dl (13.5-18.0); MEAN CELL VOLUME 83 fl (80.0-100.0); MEAN CORPUSCULAR HEMOGLOBIN 29 pg (27-31); MEAN CORPUSCULAR HGB CONC 35 g/dl (33.0-37.0); MEAN PLATELET VOLUME 11.4 fl (7.4-10.4); PLATELET COUNT 111 K/mm3 (130-400); RED BLOOD COUNT 3.53 M/mm3 (4.20-5.60); REDCELL DISTRIBUTION WIDTH-CV 13.8 % (11.5-14.5)
[2022-03-13 06:42] LABS: ALBUMIN 2.3 gm/dL (3.4-4.8); CALCIUM 8.3 mg/dL (8.4-10.2); CREATININE, serum 8.23 mg/dL (0.72-1.25); PHOSPHOROUS 5.2 mg/dL (2.3-4.7)
[2022-03-13 06:50] LABS: HEMATOCRIT 29.4 % (42.0-52.0)
[2022-03-13 06:51] LABS: POTASSIUM 2.9 mmol/L (3.5-4.5)
--- NOTE | 2022-03-13 08:25 | NUR ---
Assessment complete. A/O x4. Rates pain to low back 09/17. Reports lying in a flat position causes his back to hurt. HOB has been locked at 30 degrees due to hypotension-pt verbalizes understanding. Zosyn infusing to LFA without s/s complications. Rt BKA. Left foot wrapped- will assess ulcer with daily dressing change. Ulcer to coccyx- will get specialty bed today.
[2022-03-13 08:36] LABS: BAND 33 % (0-10); LYMPHOCYTE 4 % (20.0-51.0); METAMYELOCYTE 3 % (0-0); NEUTROPHILS 56 % (42.0-75.2); PLATELET ESTIMATE DECREASED (NORMAL)
[2022-03-13 09:15] LABS: COLLECTION METHOD CATHETER
--- NOTE | 2022-03-13 10:04 | NUR ---
MEWSscore 5. Afebrile. B/P improved. HR still tachy. SpO2 drops to 88-90% while sleeping. O2 2L/NC placed. R.T. notified. Updated [employer] and she agrees with this nurse assessment. Will continue to monitor closely. This nurse spoke with Connie Traore APRN who already visited with patient this am- new orders rec'd.
--- NOTE | 2022-03-13 13:30 | NUR ---
Patient scheduled telehealth visit with Dr. Gandhi, Infectious Disease. Pt consents to visit. Equipment set up, audio and video connections established. Visit conducted by . No technical concerns or issues.
--- NOTE | 2022-03-13 14:53 | NUR ---
Business Excellence Leader met with patient to discuss discharge planning. Patient lives at [facility] and sees Dr. Crandall for primary care. Patient requires a sit to stand lift for transfers and assistance with all ADLS. Patient also reported use of a wheelchair. Patient does not have DPOA-HC and is not interested in creating one at this time. Patient is not , has no children, and his parents are . Patient has two sisters: Juliet (ph#[phone]) and Connie. [facility] CAMPOS contacted [facility] at [facility] and faxed clinical updates. [facility]charge Plan: [facility]
--- NOTE | 2022-03-13 17:31 | NUR ---
MEWS score 2. VSS- see flowsheet. Tele ST 131. Pt reports pain is less when HOB is elevated to 90 degrees. Declined offer to obtain order for pain medications. Wound culture obtained to left heel. Left foot cleansed with soap and water. Dressing applied. No silver alginate available so Aquacel Ag advantage applied to heel and lateral foot wound. Both wounds then dressed with Aquacel foam and left foot wrapped with Kerlix. Old heel protector removed this am- very dirty and foul smelling. New heel protector applied. Pt up to BSC with sit to stand lift. Had loose stool. Coccyx red- blanchable. Miripex dressing applied. Specialty mattress placed while patient on BSC. SCD to LLE. Pt called just a few minutes ago requesting the HOB be elevated. This nurse immediately went in to assist. Pt became angry stating he had to wait 30 minutes for help. Explained to the patient that this nurse came right away and apologized that he had to wait. Pt became upset and started yelling very loudly at this nurse. This nurse explained to pt that he was welcome to express concerns/frustrations in a calm and appropriate manner and that yelling at staff will not be tolerated. Pt verbalizes understanding.
[2022-03-14 04:14] VITALS: BP 108/72; PULSE 78; TEMP 98.7
[2022-03-14 05:51] LABS: MEAN CELL VOLUME 84 fl (80.0-100.0); MEAN CORPUSCULAR HGB CONC 35 g/dl (33.0-37.0); PLATELET COUNT 104 K/mm3 (130-400); RED BLOOD COUNT 2.68 M/mm3 (4.20-5.60); REDCELL DISTRIBUTION WIDTH-CV 14.2 % (11.5-14.5)
[2022-03-14 05:54] LABS: HEMATOCRIT 22.5 % (42.0-52.0); HEMOGLOBIN 7.9 g/dl (13.5-18.0); MEAN CORPUSCULAR HEMOGLOBIN 29 pg (27-31)
[2022-03-14 06:06] LABS: ALBUMIN 1.8 gm/dL (3.4-4.8); CALCIUM 7.4 mg/dL (8.4-10.2); CREATININE, serum 8.29 mg/dL (0.72-1.25); PHOSPHOROUS 4.9 mg/dL (2.3-4.7)
[2022-03-14 06:18] LABS: POTASSIUM 2.6 mmol/L (3.5-4.5)
[2022-03-14 06:22] LABS: BAND 13 % (0-10); LYMPHOCYTE 6 % (20.0-51.0); NEUTROPHILS 78 % (42.0-75.2)
[2022-03-14 06:24] LABS: BURR CELLS 1+; PLATELET ESTIMATE DECREASED (NORMAL); POIKILOCYTOSIS 1+
[2022-03-14 07:39] VITALS: BP 130/71; PULSE 70; TEMP 97.5
--- NOTE | 2022-03-14 08:35 | NUR ---
Assessment complete. A/O x4. Blood pressures improved from yesterday. HR no longer tachy with tele reading SR with prolonged QT. IVF d/c'd per MD order. Potassium administered po per new MD order for Potassium 2.6. IV Zosyn infusing to RFA without s/s complication. Specialty mattress in place- will reposition q 2- pt currently positioned supine with HOB 90 degrees eating breakfast. Dressing to left foot CDI- will change later today. LLE elevated with heel floating- heel protector in place. R BKA. SCD on LLE. Rates pain 4/10 but declines offer for pain medications.
[2022-03-14 12:15] VITALS: BP 125/72; PULSE 67; TEMP 97.4
--- NOTE | 2022-03-14 14:47 | NUR ---
Connie Tarore APRN notified of Potassium level of 2.9 and to notify her of blood sugar levels with no ssi ordered. No new orders rec'd at this time.
[2022-03-14 16:48] VITALS: BP 115/67; PULSE 64; TEMP 97.4
--- NOTE | 2022-03-14 18:29 | NUR ---
Pt requested that this nurse call Connie and ask for a regular diet- Connie contacted and new order for Low Sodium diet rec'd. Pt voices frustration and requests regular diet. Encouraged patient to speak to Connie during rounds in the morning. Pt has been repositioned q 2 hours throughout the shift. Left heel ulcer and left lateral ulcer cleansed with CHG, dressings changed. Heel protector on and heel floated.
[2022-03-14 19:43] VITALS: BP 135/70; PULSE 68; TEMP 98.4
[2022-03-15] VITALS (7 sets, daily range): BP systolic 119–155; BP diastolic 62–98; PULSE 62–77; TEMP 97.2–98.2
[2022-03-15 06:34] LABS: MEAN CELL VOLUME 86 fl (80.0-100.0); MEAN CORPUSCULAR HGB CONC 34 g/dl (33.0-37.0); MEAN PLATELET VOLUME 12.4 fl (7.4-10.4); PLATELET COUNT 114 K/mm3 (130-400); RED BLOOD COUNT 3.13 M/mm3 (4.20-5.60); REDCELL DISTRIBUTION WIDTH-CV 14.3 % (11.5-14.5)
[2022-03-15 06:37] LABS: HEMATOCRIT 26.9 % (42.0-52.0); MEAN CORPUSCULAR HEMOGLOBIN 29 pg (27-31)
[2022-03-15 06:49] LABS: ALBUMIN 1.9 gm/dL (3.4-4.8); CREATININE, serum 9.27 mg/dL (0.72-1.25); PHOSPHOROUS 4.3 mg/dL (2.3-4.7)
[2022-03-15 07:06] LABS: BAND 15 % (0-10); EOSINOPHIL 1 % (0-4); LYMPHOCYTE 6 % (20.0-51.0); NEUTROPHILS 74 % (42.0-75.2); PLATELET ESTIMATE NORMAL (NORMAL)
--- NOTE | 2022-03-15 09:39 | NUR ---
Assessment complete. A/O x4. Rates back pain 05/18. Declines offer for pain medication. Pain decreases with HOB elevated- HOB elevated to 90 degrees. IV to RFA without s/s complications. Dressing to left heel changed and wrapped with kerlix. Heel ulcer malodorus with more serosanginous drainage than yesterday. No change noted to left lateral heel wound. Repositioning q 2 hours. On specialty bed. Right BKA and left heel floated. SCD to LLE.
--- NOTE | 2022-03-15 14:46 | NUR ---
SW informed on 03/15/2022 that patient would be DCing on 03/16/2022 to [facility]. SW will continue to follow.
--- NOTE | 2022-03-15 16:54 | NUR ---
No changes since am assessment. Continues to report low back pain- declines need for intervention. Repositioned q 2 hrs. Pt now on general diet and has been tolerating well.
[2022-03-16 03:43] VITALS: BP 169/81; PULSE 68; TEMP 97.6
[2022-03-16 04:53] VITALS: BP 168/86
--- NOTE | 2022-03-16 05:05 | NUR ---
ASSESSMENT COMPLETE FOR SQL REPORT ANALYST. PT DENIED PAIN, CHEST PAIN, PALPITATIONS, SOB, N,V,D (THIS SHIFT), OR DIZZINESS. PT COMPLAIN A LOT ABOUT HIS FLUID RESTRICTION. I AGAIN, EXPLAINED WHY HE WAS ON A FLUID RESTRICTION. PT STILL NOT HAPPY ABOUT IT. PT ALSO REFUSED APRESOLINE FOR HIS HIGH B/P. PT STATED HE HAS NOT BEEN ABLE TO GET DIALYSIS FOR SIX DAYS BECAUSE HIS B/P WAS LOWER THEN HE'S "NORMAL 180'S (SYSTOLIC)." I EXPLAINED THAT WAS NOT THE CASE AND THAT HIS DR WANTED HIS B/P BELOW 160, BUT HE WAS NOT HEARING IT. CALL LIGHT WITHIN REACH.
[2022-03-16 06:01] LABS: MEAN CELL VOLUME 82 fl (80.0-100.0); MEAN CORPUSCULAR HGB CONC 35 g/dl (33.0-37.0); MEAN PLATELET VOLUME 12.2 fl (7.4-10.4); PLATELET COUNT 115 K/mm3 (130-400); RED BLOOD COUNT 3.41 M/mm3 (4.20-5.60); REDCELL DISTRIBUTION WIDTH-CV 14.2 % (11.5-14.5)
[2022-03-16 06:03] LABS: HEMATOCRIT 28.1 % (42.0-52.0); HEMOGLOBIN 9.8 g/dl (13.5-18.0); MEAN CORPUSCULAR HEMOGLOBIN 29 pg (27-31)
[2022-03-16 06:20] LABS: ALBUMIN 2.1 gm/dL (3.4-4.8); CALCIUM 8.2 mg/dL (8.4-10.2); CREATININE, serum 9.49 mg/dL (0.72-1.25); PHOSPHOROUS 4.5 mg/dL (2.3-4.7); POTASSIUM 3.1 mmol/L (3.5-4.5)
[2022-03-16 06:37] LABS: BAND 1 % (0-10); EOSINOPHIL 1 % (0-4); LYMPHOCYTE 6 % (20.0-51.0); NEUTROPHILS 90 % (42.0-75.2); PLATELET ESTIMATE DECREASED (NORMAL)
[2022-03-16 08:09] VITALS: BP 170/86; PULSE 68; TEMP 100.4; TEMP 97.7
--- NOTE | 2022-03-16 11:21 | NUR ---
[facility] staffed with the patient's RN. GRETA Chavarria, notified his RN that the patient will likely be here at least a few more days. [facility] notified and faxed updates to Arlen at [facility]. *Discharge plan: [facility]*
[2022-03-16 12:00] VITALS: BP 105/64; PULSE 72; TEMP 97.9
--- NOTE | 2022-03-16 15:30 | NUR ---
DRESSING TO L HEEL AND L LATERAL FOOT CHANGED. MEPILEX TO SACRUM CHANGED.
[2022-03-16 15:44] VITALS: BP 163/79; PULSE 74; TEMP 98.1
--- NOTE | 2022-03-16 18:20 | NUR ---
PATIENT AWAKE AND ALERT, RESTING IN BED. PATIENT DENIES ANY NEEDS OR COMPLAINTS AT THIS TIME. DRESSING TO L FOOT CLEAN DRY AND INTACT. IV ZOSYN INFUSING PER ORDER. CALL LIGHT WTIH IN REACH. BED ALARM ON.
[2022-03-16 20:50] VITALS: BP 177/77; PULSE 77; TEMP 97.7
--- NOTE | 2022-03-16 23:31 | NUR ---
PT WAS NOTED TO HAVE A BLOOD PRESSURE OF 177/77. PATIENT ENCOURAGED TO TAKE PRN BLOOD PRESSURE MEDICATION AT THIS TIME. PATIENT REFUSED TO TAKE BLOOD PRESSURE MEDICATION. PATIENT DENIES FURTHER QUESTIONS OR CONCERNS AT THIS TIME
[2022-03-17 00:17] VITALS: BP 143/84; PULSE 77; TEMP 97.3
[2022-03-17 03:28] VITALS: BP 156/83; PULSE 80; TEMP 97.9
[2022-03-17 06:29] LABS: MEAN CELL VOLUME 84 fl (80.0-100.0); MEAN CORPUSCULAR HEMOGLOBIN 29 pg (27-31); MEAN CORPUSCULAR HGB CONC 34 g/dl (33.0-37.0); MEAN PLATELET VOLUME 11.4 fl (7.4-10.4); PLATELET COUNT 140 K/mm3 (130-400); RED BLOOD COUNT 3.46 M/mm3 (4.20-5.60); REDCELL DISTRIBUTION WIDTH-CV 14.5 % (11.5-14.5)
[2022-03-17 06:41] LABS: HEMATOCRIT 29.2 % (42.0-52.0)
[2022-03-17 07:02] LABS: ALBUMIN 2.2 gm/dL (3.4-4.8); CALCIUM 8.5 mg/dL (8.4-10.2); CREATININE, serum 7.24 mg/dL (0.72-1.25); PHOSPHOROUS 3.6 mg/dL (2.3-4.7); POTASSIUM 3.2 mmol/L (3.5-4.5)
[2022-03-17 07:24] LABS: BAND 1 % (0-10); EOSINOPHIL 2 % (0-4); LYMPHOCYTE 10 % (20.0-51.0); NEUTROPHILS 80 % (42.0-75.2); PLATELET ESTIMATE NORMAL (NORMAL)
[2022-03-17 07:35] VITALS: BP 151/83; PULSE 80; TEMP 97.6
--- NOTE | 2022-03-17 07:42 | NUR ---
PATIENT AWAKE AND ALERT, RESTING IN BED. ASSESSMENT COMPLETED. PATIENT DENIES ANY NEEDS OR COMPLAINTS AT THIS TIME. BED ALARM ON, CALL LIGHT WITH IN REACH.
--- NOTE | 2022-03-17 10:54 | NUR ---
[facility] faxed updates to Arlen at [facility].
[2022-03-17 11:17] VITALS: BP 156/83; PULSE 78; TEMP 97.8
[2022-03-17] MEDS ORDERED: BACTRIM DS 8001 TAB PO (13:58)
[2022-03-17 14:34] LABS: PROTHROMBIN TIME 11.8 SECONDS (9.7-12.8)
[2022-03-17 15:13] VITALS: BP 139/85; PULSE 80; TEMP 98.5
--- NOTE | 2022-03-17 15:30 | NUR ---
PER MACHINE PAN GREASER, SHE SPOKE WITH [facility] NURSE ABOUT SEEING PATIENT AND GETTING HER ONTO AN ORAL ANTX REGIMEN.
[2022-03-17 20:02] VITALS: BP 168/87; PULSE 82; TEMP 97.9
[2022-03-18 00:41] VITALS: BP 149/91; PULSE 88; TEMP 98.1
[2022-03-18 05:07] VITALS: BP 169/92; PULSE 76; TEMP 97.9
[2022-03-18 08:08] VITALS: BP 175/92; PULSE 83; TEMP 98.1
--- NOTE | 2022-03-18 08:10 | NUR ---
Assessment complete. Ultram administered po as ordered prior to dialysis. Rates pain to coccyx 7/10 and to low back 4/10. Pt taken to dialysis via bed.
[2022-03-18] MEDS ORDERED: PRINCIPEN500 MG PO (10:43)
--- NOTE | 2022-03-18 11:26 | NUR ---
[facility] staffed with GRETA Chavarria. They are ready to discharge the patient today. [facility] notified Arlen at [facility]. Arlen asks for skilled orders. The patient is to discharge today, 03/18, back to [facility] for a skilled stay. Transportation scheduled around 1400, via [facility]. [facility] notified the patient's RN and the patient's sister, Juliet, of the time. No additional needs at this time.
[2022-03-18 12:40] VITALS: BP 141/84; PULSE 86; TEMP 98.2
--- NOTE | 2022-03-18 12:40 | NUR ---
Pt returns to room from dialysis. Lunch ordered.
--- NOTE | 2022-03-18 15:10 | NUR ---
Dressing changed to left heel, left lateral heel and coccyx. Pt had smear of BM- cares provided. INT to RFA d/c'd with cath tip intact. 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 Pt transferred to w/c via slide sheet. Prosthetic sent with [facility] staff. Pt discharged to [facility] in personal w/c via [facility] staff.
--- NOTE | 2022-03-18 15:57 | NUR ---
Report called to Lita [facility].
== END 2022-03-18 15:10 | DRG 314 ==
LOC: COL.ER 13:06 → MEDICAL 17:13
PROVIDERS: Nurse Practitioner; Registered Nurse; ADMIT Internal Medicine Nephrology
PROC: 5A1D70Z Performance of Urinary Filtration, Intermittent, Less than 6 Hours Per Day (ICD-10-PCS; principal; 2022-03-16)
DX: T82.868A Thrombosis due to vascular prosthetic devices, implants and grafts, initial encounter (principal); A41.9 Sepsis, unspecified organism; N18.6 End stage renal disease; L97.429 Non-pressure chronic ulcer of left heel and midfoot with unspecified severity; I13.2 Hypertensive heart and chronic kidney disease with heart failure and with stage 5 chronic kidney disease, or end stage renal disease; M86.8X7 Other osteomyelitis, ankle and foot; N13.6 Pyonephrosis; I25.10 Atherosclerotic heart disease of native coronary artery without angina pectoris; E78.5 Hyperlipidemia, unspecified; K52.9 Noninfective gastroenteritis and colitis, unspecified; E11.22 Type 2 diabetes mellitus with diabetic chronic kidney disease; F10.90 Alcohol use, unspecified, uncomplicated; Z20.822 Contact with and (suspected) exposure to COVID-19; D50.9 Iron deficiency anemia, unspecified; E11.42 Type 2 diabetes mellitus with diabetic polyneuropathy; E66.01 Morbid (severe) obesity due to excess calories; I50.9 Heart failure, unspecified; E11.69 Type 2 diabetes mellitus with other specified complication; N30.90 Cystitis, unspecified without hematuria; E83.39 Other disorders of phosphorus metabolism; I95.9 Hypotension, unspecified; D63.1 Anemia in chronic kidney disease; L89.159 Pressure ulcer of sacral region, unspecified stage; B96.20 Unspecified Escherichia coli [E. coli] as the cause of diseases classified elsewhere; Y83.8 Other surgical procedures as the cause of abnormal reaction of the patient, or of later complication, without mention of misadventure at the time of the procedure; Z86.14 Personal history of Methicillin resistant Staphylococcus aureus infection; Z99.2 Dependence on renal dialysis; Z86.73 Personal history of transient ischemic attack (TIA), and cerebral infarction without residual deficits; Z89.511 Acquired absence of right leg below knee; Z79.890 Hormone replacement therapy; Z79.4 Long term (current) use of insulin; Z68.27 Body mass index [BMI] 27.0-27.9, adult
CPT/HCPCS: C1751; C1769; C1894; G0378; J0690; J0696; J1644; J1815; J2250; J2543; J3010; J3370; J7030; J7040; J7050; Q5105; Q9967

== ENCOUNTER → 2023-03-13 | Outpatient (CLI) | payer MEDICARE, MEDICAID ==
[~2023-03-13] MED LIST changes: +ACIDOPHILIS; +ANTI-DIARRHEAL2 MG PO; +BACTRIM DS 8001 TAB PO; +BENADRYL25 M2 PO; +CHLORASEPTIC 1180 M3 MM; +EUCERIN1 CRE TOP; +LOVENOX 3030 MG/0.3 SQ; +NORVASC 5MG5 MG/TAB PO; +PACERONE200 MG PO; +PRINCIPEN500 MG PO; +REGLAN 5MG T5 MG/TAB PO; +ULTRAM 50MG TAB50 MG PO
[2023-03-13 14:27] LABS: CLOSTRIDIUM DIFF A/B NEG
== END ==
LOC: ZCOL.LAB 13:00
PROVIDERS: Family Medicine
DX: A04.72 Enterocolitis due to Clostridium difficile, not specified as recurrent (principal); G90.4 Autonomic dysreflexia; D80.6 Antibody deficiency with near-normal immunoglobulins or with hyperimmunoglobulinemia